=== PATIENT | male | born 1950 | race Caucasian/White ===

== ENCOUNTER → 2022-01-10 | Outpatient (CLI) | payer MEDICARE ==
[2022-01-10 14:14] LABS: Basophils # (A) 0.07 X 10*3/uL (0.00-0.10); Basophils % (A) 0.9 %; Eosinophils # (A) 0.23 X 10*3/uL (0.04-0.35); Eosinophils % (A) 3.1 %; HCT 39.8 % (39.6-50.0); HGB 13.3 g/dL (13.0-17.0); Immature Grans, Automated 0.3 %; Lymphocytes # (A) 2.32 X 10*3/uL (0.90-5.00); Lymphocytes % (A) 31.2 %; MCH 31.1 pg (27.0-32.0); MCHC 33.4 g/dL (32.0-37.0); MCV 93.2 fL (80.0-97.0); Mean Platelet Volume 9.4 fL (9.5-12.2); Monocytes # (A) 0.79 X 10*3/uL (0.20-1.00); Monocytes % (A) 10.6 %; NRBC Per 100 WBC 0 /100 WBCS (0.0-0.0); Neutrophils % (A) 53.9 %; Platelet Count 421 X 10*3/uL (140-440); RBC 4.27 X 10*6/uL (4.40-5.60); RDW 14.6 % (11.5-14.5); WBC 7.43 X 10*3/uL (4.50-10.00)
[2022-01-10 14:19] LABS: African American GFR (CKD) 87.4 (60.0-200.0); Anion Gap 9.2 mmol/L (10.00-18.00); BUN/Creat Ratio 14.3 Ratio (12.00-20.00); Blood Urea Nitrogen 14.3 mg/dL (9.0-27.0); Calcium 9.4 mg/dL (8.7-10.3); Carbon Dioxide 26.8 mmol/L (20.0-27.5); Non-African American GFR(CKD) 75.4 (60.0-200.0); Potassium 4.3 mmol/L (3.5-5.5)
== END | disposition home or self-care (01) ==
LOC: LABPAT 09:59
PROVIDERS: ATTEND Urology
DX: Z01.812 Encounter for preprocedural laboratory examination (principal); D49.4 Neoplasm of unspecified behavior of bladder
CPT/HCPCS: 80048; 85025

== ENCOUNTER 2022-01-18 10:00 | Day surgery (SDC) | payer MEDICARE ==
--- NOTE | 2022-01-17 22:16 | P.GSHP ---
History of Present Illness H&P Date: 01/17/22 Chief Complaint: Hematuria The patient is a 71-year-old white male with an unremarkable urologic history who had an episode of gross hematuria in early December. A CT scan showed a left lateral bladder wall diverticulum as well as a 2.5 cm bladder mass. Cystoscopy shows a 2-3 cm sessile tumor on the left lateral bladder wall. A small diverticulum is identified just distal to the tumor. - Constitutional Constitutional: Denies chills, Denies fever - Genitourinary (Female) Genitourinary: Reports hematuria, Denies flank pain Past Medical History Past Medical History: No Reported History Past Surgical History: Tonsillectomy Additional Past Surgical History / Comment(s): Left knee surgery Smoking Status: Current every day smoker Medications and Allergies Allergies Allergy/AdvReac Type Severity Reaction Status Date / Time Unable to Assess Allergy Verified 01/17/22 12:55 Surgical - Exam - General well developed, well nourished, no distress - Neck no masses, trachea midline - Respiratory normal respiratory effort - Abdomen Abdomen: soft, non tender, no guarding, no rigid, no rebound - Genitourinary normal penis with no external lesions, testicles non-tender left: scrotal mass/hydrocele (Left scrotal wall sebaceous cyst) - Rectum Rectum: normal sphincter tone, no masses, other (Prostate moderately enlarged and smooth) - Psychiatric oriented to time, oriented to person, oriented to place, speech is normal, memory intact Results - Imaging CT scan - abdomen: report reviewed, image reviewed Assessment and Plan (1) Neoplasm of unspecified behavior of bladder Status: Acute Code(s): D49.4 - NEOPLASM OF UNSPECIFIED BEHAVIOR OF BLADDER SNOMED Code(s): 183986253 Plan: Cystoscopy, transurethral resection of bladder tumor (TUR-BT). The procedures been reviewed in detail with the patient. He has been made aware of potential risks, which include anesthesia, bleeding, infection, postoperative urinary retention, and bladder perforation. The possible need for a Lira catheter postoperatively has been discussed.
[~2022-01-18 10:00] MED LIST: HYDROmorphone 0.5 MG/0.5 ML SYRINGE IVP PRN; LACTATED RINGERS 1,000 ML IV SCH; fentaNYL (PF) 50 MCG/ML 2 ML AMP IV PRN
[2022-01-18] MEDS ORDERED: ONDANSETRON 4 MG/2 ML VIAL ONE (10:34)
[2022-01-18] MEDS ORDERED: LIDOCAINE 1% (10MG/ML) FOR IV START INTRADERMA ONE (10:35)
[2022-01-18] MEDS ORDERED: DEXAMETHASONE SOD PHOSPHATE 4 MG/ML 1 ML VIAL IV ONE (10:40)
[2022-01-18] MEDS ORDERED: ONDANSETRON 4 MG/2 ML VIAL IVP ONE (10:40)
[2022-01-18] MEDS ORDERED: SUCCINYLCHOLINE CHLORIDE 200 MG/10 ML VIAL IV ONE (15:07)
[2022-01-18] MEDS ORDERED: NEOSTIGMINE 1 MG/ML 10 ML VIAL ONE (15:07)
[2022-01-18] MEDS ORDERED: fentaNYL (PF) 50 MCG/ML 2 ML AMP ONE ×2 (15:07)
[2022-01-18] MEDS ORDERED: ROCURONIUM 10 MG/ML (5 ML VIAL) IV ONE (15:07)
[2022-01-18] MEDS ORDERED: PROPOFOL 10 MG/ML 20 ML VIAL IV ONE (15:07)
[2022-01-18] MEDS ORDERED: GLYCOPYRROLATE 0.2 MG/ML 2 ML VIAL ONE (15:07)
[2022-01-18] MEDS ORDERED: PHENYLEPHRINE-0.9% NACL SYG 1,000 MCG/10 ML SYRINGE ONE (15:07)
[2022-01-18] MEDS ORDERED: LIDOCAINE 2% INJ 20 MG/ML (2 ML VIAL) ONE (15:07)
--- NOTE | 2022-01-18 16:43 | P.OP ---
Date of Procedure: 01/18/22 Preoperative Diagnosis: Bladder tumor Postoperative Diagnosis: Bladder tumors Procedure(s) Performed: Cystoscopy, transurethral resection of bladder tumor (TUR-BT; large) Anesthesia: CHREYLA Surgeon: Jhonny Maher Estimated Blood Loss (ml): 10 IV fluids (ml): 500 Pathology: other (Tumor fragments from bladder dome and left lateral bladder wall.) Condition: stable Disposition: PACU Indications for Procedure: The patient is a 71-year-old white male with an unremarkable urologic history who had an episode of gross hematuria in early December. A CT scan showed a left lateral bladder wall diverticulum as well as a 2.5 cm bladder mass. Cystoscopy shows a 2-3 cm sessile tumor on the left lateral bladder wall. A small diverticulum is identified just distal to the tumor. 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 2) Left lateral bladder wall sessile tumor, suspect muscle invasion. Description of Procedure: The patient was taken in the operating room and placed in the dorsal lithotomy position, with his legs supported in Tavo stirrups. The external genitalia was prepped and draped sterilely. The Rell urethrotome was used to incise the urethra to 25-Japanese. The 25-Japanese ACMI resectoscope sheath was introduced into the bladder under direct vision. The prostatic urethra showed evidence of bilobar enlargement. No urothelial changes were seen within the prostatic urethra.. The bladder was inspected. Both ureteral orifices were of normal anatomic location and configuration, and clear urine effluxed from both. The entire bladder was examined, revealing flat tumor involving the bladder dome. A sessile tumor was seen on the left lateral bladder wall, measuring 2-3 cm in size. Just distal to this was a moderate-sized diverticulum.. Using the bipolar cutting loop, the involved mucosa at the bladder dome was resected down to the superficial muscle. This resected tissue was sent as a surgical specimen. Next, the left lateral bladder wall tumor was resected down to the deep muscle muscle. The tumor appeared to be muscle invasive. There was no evidence of bladder perforation. The resection bed was fulgurated, though it was not possible to completely eliminate oozing from the base of the left lateral bladder wall tumor. Nonetheless, adequate hemostasis was attained. The resected tissue was saved and sent for pathologic examination. A 20-Japanese Lira catheter was inserted. The return was essentially clear. Lasix 10 mg was given intravenously. The patient tolerated the procedure well and was taken to the recovery room in stable condition.
[2022-01-18] MEDS ORDERED: LACTATED RINGERS 1,000 ML IV ONE ×2 (16:45)
[2022-01-18 16:50] VITALS: TEMP 96.8
[2022-01-18] MEDS ORDERED: TAMSULOSIN 0.4 MG CAP.ER.24H PO ONE (17:54)
[2022-01-18] MEDS ORDERED: BELLADONNA-OPIUM 16.2-60 MG 1 EACH SUPP RECTAL ONE (18:00)
[2022-01-18 18:46] VITALS: BP 133/78; PULSE 56; RESP 20
== END 2022-01-18 18:47 | disposition home or self-care (01) ==
LOC: OR 10:00
PROVIDERS: ATTEND Urology
DX: C67.9 Malignant neoplasm of bladder, unspecified (principal); R31.0 Gross hematuria; N32.3 Diverticulum of bladder; F17.210 Nicotine dependence, cigarettes, uncomplicated; Z90.89 Acquired absence of other organs; Z98.890 Other specified postprocedural states
CPT/HCPCS: 52240; J0330; J1100; J2710; J0690; J2405; J3010; J2370; J2704; J2001; 88307

== ENCOUNTER → 2022-03-15 | Outpatient (CLI) | payer MEDICARE ==
[2022-03-15 08:29] LABS: ALT 14 U/L (4-49); AST 18 U/L (17-59); African American GFR (CKD) >90 (>60 ml/min/1.73 sqM); Albumin 4.2 g/dL (3.5-5.0); Albumin/Globulin Ratio 1.7; Alkaline Phosphatase 81 U/L (38-126); Anion Gap 5 mmol/L; Blood Urea Nitrogen 18 mg/dL (9-20); Calcium 9.2 mg/dL (8.4-10.2); Carbon Dioxide 27 mmol/L (22-30); Chloride 106 mmol/L (98-107); Globulin 2.5 g/dL; Glucose 105 mg/dL (74-99); Non-African American GFR(CKD) 88 (>60 ml/min/1.73 sqM); Potassium 4.3 mmol/L (3.5-5.1); Sodium 138 mmol/L (137-145); Total Bilirubin 0.5 mg/dL (0.2-1.3); Total Protein 6.7 g/dL (6.3-8.2)
--- NOTE | 2022-03-15 10:32 | CT ---
EXAMINATION TYPE: CT chest wo con DATE OF EXAM: 03/15/2022 COMPARISON: None HISTORY: r/o mets, bladder ca CT DLP: 236.7 mGycm. Automated Exposure Control for Dose Reduction was Utilized. TECHNIQUE: CT scan of the thorax is performed without IV contrast. FINDINGS: LUNGS: The lungs are grossly clear, there is no concerning parenchymal mass or nodule identified. T here is no pleural effusion or pneumothorax seen. The tracheobronchial tree is patent. Biapical pleu ral thickening. Findings suggest mild underlying emphysematous change. MEDIASTINUM: Lack of IV contrast is noted to limit evaluation for mediastinal and especially hilar ad enopathy. There are no definitive greater than 1 cm hilar or mediastinal lymph nodes. No cardiomega ly or pericardial effusion is seen. Aorta measures a maximal dimension of 3.8 cm there is coronary ar jimy calcification. Heart size normal OTHER: Hypertrophic degenerative changes spine. Indeterminate hypodensity within the left renal anter ior cortex correlated with ultrasound if clinically. IMPRESSION: 1. No diagnostic evidence of pulmonary nodule or pathologic adenopathy. 2. Coronary artery calcification. 3. Correlate for COPD.
[2022-03-15 11:02] LABS: Basophils # (A) 0.07 X 10*3/uL (0.00-0.10); Basophils % (A) 0.9 %; Eosinophils # (A) 0.23 X 10*3/uL (0.04-0.35); HCT 39.8 % (39.6-50.0); Immature Grans, Automated 0.3 %; Lymphocytes # (A) 2.35 X 10*3/uL (0.90-5.00); Lymphocytes % (A) 30.4 %; MCH 30.7 pg (27.0-32.0); MCHC 32.7 g/dL (32.0-37.0); MCV 94.1 fL (80.0-97.0); Mean Platelet Volume 9.3 fL (9.5-12.2); Monocytes # (A) 0.76 X 10*3/uL (0.20-1.00); Monocytes % (A) 9.8 %; NRBC Per 100 WBC 0 /100 WBCS (0.0-0.0); Neutrophils % (A) 55.6 %; Platelet Count 466 X 10*3/uL (140-440); RBC 4.23 X 10*6/uL (4.40-5.60); RDW 14.5 % (11.5-14.5); WBC 7.73 X 10*3/uL (4.50-10.00)
--- NOTE | 2022-03-16 16:03 | CT ---
EXAMINATION TYPE: CT urogram wo/w con DATE OF EXAM: 03/15/2022 COMPARISON: 12/28/2021 INDICATION: bladder ca DLP: 1064.9 mGycm, Automated exposure control for dose reduction was used. CONTRAST: 100 mL of Isovue 370. Study performed without Oral Contrast TECHNIQUE: Axial images were obtained from above the diaphragm to the pubic rami in the axial plane a t 5 mm thick sections. Reconstructed images are reviewed on the computer in the coronal plane. FINDINGS: Limited CT sections are obtained the lung bases. The lung bases are clear. CT ABDOMEN: Liver: Normal Spleen: Normal Pancreas: Normal Adrenal glands: The adrenal glands are normal. Gallbladder: Normal Kidneys: No masses are evident. No hydronephrosis is present. There is a 1.2 cm cyst on the anterio r mid left kidney. Delayed images were obtained through the kidney. This was performed at 6 minutes due to urgency for u rination. Renal collecting system renal pelves and ureters as visualized appear normal. There is part ial nonvisualization of ureters during portions of the examination. Urinary bladder: There is diffuse wall thickening through the left lateral aspect extending posterior and to lesser degree anterior. There is inferior impression from the enlarged prostate. These findin gs were present previously. There is a new 2.0 cm filling defect. This is not identified on the comparison study. Recurrent urina ry bladder neoplasm should be considered. Aorta: Vascular calcification is within the aorta. Inferior vena cava: Normal. CT PELVIS: Loops of bowel within the abdomen and pelvis are normal. This study is limited without oral contr ast, limiting bowel evaluation. Appendix: Normal as visualized. Genitourinary structures: Osseous structures: No suspicious lytic or sclerotic lesions. IMPRESSIONS: 1. Filling defect within the urinary bladder measuring 2 cm suspicious for urinary bladder recurrent neoplasm. 2. Diffuse wall thickening through the left lateral portion of the urinary bladder appears stable fro m comparison.
== END | disposition home or self-care (01) ==
LOC: RADCTMAIN 07:43
PROVIDERS: ATTEND Urology
DX: C67.0 Malignant neoplasm of trigone of bladder (principal); I25.10 Atherosclerotic heart disease of native coronary artery without angina pectoris
CPT/HCPCS: 80053; 85025; 71250; 74178; 36415; 74400; Q9967

== ENCOUNTER → 2022-07-19 | Outpatient (CLI) | payer MEDICARE ==
--- NOTE | 2022-07-19 12:10 | CT ---
EXAMINATION TYPE: CT ChestAbdPelvis w con DATE OF EXAM: 07/19/2022 COMPARISON: Prior CT March 15, 2022 HISTORY: bladder cancer CT DLP: 592.1 mGycm. Automated Exposure Control for Dose Reduction was Utilized. CONTRAST: CT scan of the thorax, abdomen and pelvis is performed with IV Contrast, patient injected with 100 mL of Isovue 300. FINDINGS: LUNGS: Mild biapical pleural/parenchymal scarring is redemonstrated. No suspicious new greater than 5 mm pulmonary nodules or masses. There is no pleural effusion or pneumothorax seen. The tracheobron chial tree is patent. MEDIASTINUM: There are no greater than 1 cm hilar or mediastinal lymph nodes. No cardiomegaly or pe ricardial effusion is seen. Coronary artery calcification is redemonstrated. LIVER/GB: No significant abnormality is appreciated. PANCREAS: No significant abnormality is seen. SPLEEN: No significant abnormality is seen. ADRENALS: No significant abnormality is seen. KIDNEYS: Symmetric corticomedullary uptake and excretion without hydronephrosis seen bilaterally. The re is 1.4 cm simple appearing thin-walled cyst anteriorly in the left kidney axial image 21 redemonst rated. Urinary bladder has persistent left lateral abnormal moderate wall thickening with new mild co ncentric wall thickening overall and suboptimal distention. No new intraluminal mass or calculus. Sca ttered left-sided pelvic phlebolith are redemonstrated. BOWEL: Oral contrast was not reached level of the terminal ileum making evaluation of distal bowel sl ightly suboptimal. No suspicious small or large bowel dilatation is seen. GENITAL ORGANS: Enlarged prostate consistent with BPH is redemonstrated. LYMPH NODES: No greater than 1cm abdominal or pelvic lymph nodes are appreciated. OSSEOUS STRUCTURES: Vacuum disc phenomenon with mild to moderate spurring and narrowing at the lumbos acral junction is redemonstrated. Multilevel facet arthropathy in the lumbar spine is again seen. OTHER: No significant additional abnormality is seen. IMPRESSION: Persistent abnormal appearing bladder could reflect product of prior treatment and/or act cecile neoplasm. There is no suspicious new mass or adenopathy to suggest metastatic disease or neoplast ic progression.
== END | disposition home or self-care (01) ==
LOC: RADCTMAIN 09:28
PROVIDERS: ATTEND Internal Medicine
DX: Z03.89 Encounter for observation for other suspected diseases and conditions ruled out (principal); C67.9 Malignant neoplasm of bladder, unspecified
CPT/HCPCS: 82565; 84520; 71260; 74177; 36415; Q9967

== ENCOUNTER 2022-12-24 09:28 | Emergency (ER) | payer MEDICARE ==
[2022-12-24 09:33] VITALS: TEMP 97.7
--- NOTE | 2022-12-24 11:11 | ED ---
Abdominal Pain HPI - General Chief Complaint: Abdominal Pain Stated Complaint: fluid build up Time Seen by Provider: 12/24/22 09:34 Source: patient, RN notes reviewed Mode of arrival: ambulatory Limitations: no limitations - History of Present Illness Initial Comments: This is a 72-year-old male who presents to the emergency department for constipation and abdominal pain. States that a couple of months ago he had resection of his bladder and prostate at [facility] due to bladder cancer. Since then he has been having intermittent problems with constipation. However, over the last month he has not had an adequate bowel movement. He states that he has only had small hard pieces of stool. He has generalized abdominal pain. He had a CT scan of his abdomen and pelvis done on 12/12, and states that his PCP told him that he may have a seroma. He has not been taking any medications for the constipation. Denies any associated nausea or vomiting. Currently follows with Dr. Salazar, hem/onc. He is not receiving any cancer treatment at this time. Denies any fevers, chills, sore throat, cough, dyspnea, chest pain, palpitations, nausea, vomiting, diarrhea, back pain, or headaches. MD Complaint: abdominal pain Location: diffuse - Related Data Previous Rx's Medication Instructions Recorded polyethylene glycoL 3350 [Miralax] 17 gm PO DAILY PRN #527 gm 12/24/22 Allergies Allergy/AdvReac Type Severity Reaction Status Date / Time No Known Allergies Allergy Verified 12/24/22 09:33 Review of Systems ROS Statement: Those systems with pertinent positive or pertinent negative responses have been documented in the HPI. ROS Other: All systems not noted in ROS Statement are negative. Past Medical History Past Medical History: Cancer Additional Past Medical History / Comment(s): BLADDER CANCER History of Any Multi-Drug Resistant Organisms: None Reported Past Surgical History: Tonsillectomy Additional Past Surgical History / Comment(s): Left knee surgery,MASS REMOVED FROM BLADDER 01/2022, 07/2022-bladder removed/ileostomy Past Anesthesia/Blood Transfusion Reactions: No Reported Reaction Past Psychological History: No Psychological Hx Reported Smoking Status: Current every day smoker Past Alcohol Use History: Occasional Past Drug Use History: None Reported General Exam Limitations: no limitations General appearance: alert, in no apparent distress Head exam: Present: atraumatic, normocephalic, normal inspection Respiratory exam: Present: normal lung sounds bilaterally. Absent: respiratory distress, wheezes, rales, rhonchi, stridor Cardiovascular Exam: Present: regular rate, normal rhythm, normal heart sounds. Absent: systolic murmur, diastolic murmur, rubs, gallop, clicks GI/Abdominal exam: Present: soft, normal bowel sounds. Absent: distended, tenderness, guarding, rebound, rigid Neurological exam: Present: alert, oriented X3, CN II-XII intact Psychiatric exam: Present: normal affect, normal mood Skin exam: Present: warm, dry, intact, normal color. Absent: rash Course Vital Signs 12/24/22 12/24/22 12/24/22 09:29 11:26 13:23 Temperature 97.7 F 97.7 F Pulse Rate 85 73 63 Respiratory 18 20 20 Rate Blood Pressure 126/80 113/83 125/81 O2 Sat by Pulse 97 99 98 Oximetry Medical Decision Making - Medical Decision Making This is a 72-year-old male who presents to the emergency department for abdominal pain and constipation. Was pt. sent in by a medical professional or institution? @ -No Did you speak to anyone other than the patient for history? @ -No Did you review nursing and triage notes? @ -Yes, and I agree, it is accurate with regards to the patient's symptoms. Were old charts reviewed? @ -No Differential Diagnosis? @ -Differential Abdominal Pain Men: Appendicitis, cholecystitis, diverticulosis, ischemic bowel, pancreatitis, hepatitis, UTI, gastroenteritis, AAA, incarcerated hernia, bowel obstruction, constipation, inflammatory bowel, hepatitis, peptic ulcer disease, splenic infarction, perforated viscus, testicular torsion, this is not meant to be an all-inclusive list EKG interpreted by me (3pts min.)? @ -Not obtained X-rays interpreted by me (1pt min.)? @ -Not obtained CT interpreted by me (1pt min.)? @ -Computed tomography scan of the abdomen and pelvis obtained. My interpretation identifies no evidence of free air. U/S interpreted by me (1pt. min.)? @ -Not obtained What testing was considered but not performed? (CT, X-rays, U/S, labs)? Why? @ -None What meds were considered but not given? Why? @ -None Did you discuss the management of the patient with other professionals? @ -No Did you reconcile home meds? @ -No Was smoking cessation discussed for >3mins.? @ -No Was critical care preformed (if so, how long)? @ -No Were there social determinants of health that impacted care today? How? (Homelessness, low income, unemployed, alcoholism, drug addiction, transportation, low edu. Level, literacy, decrease access to med. care, group home, rehab)? @ -No Was there de-escalation of care discussed even if they declined? (Discuss DNR or withdrawal of care, Hospice)? @ -No What co-morbidities impacted this encounter? (DM, HTN, Smoking, COPD, CAD, Cancer, CVA, Hep., AIDS, mental health diagnosis, sleep apnea, morbid obesity)? @ -Bladder cancer Was patient admitted / discharged? @ -Discharged. Lab work obtained and found to be nonactionable. Computed tomography scan of the abdomen and pelvis obtained revealing concern for neoplasm progression. There does appear to be some progression to the colon as well. Discussed with the patient that this may be contributing to his constipation. He is instructed to follow up with Dr. Salazar to review the imaging and discuss his treatment moving forward. He was given a prescription for MiraLAX to help with the constipation as well. Undiagnosed new problem with uncertain prognosis? @ -None Drug Therapy requiring intensive monitoring for toxicity (Heparin, Nitro, Insulin, Cardizem)? @ -None Were any procedures done? @ -None Diagnosis/symptom? @ -Constipation, metastatic cancer Acute, or Chronic, or Acute on Chronic? @ -Acute Uncomplicated (without systemic symptoms) or Complicated (systemic symptoms)? @ -Uncomplicated Side effects of treatment? @ -None Exacerbation, Progression, or Severe Exacerbation] @ -Not applicable Poses a threat to life or bodily function? @ -Yes Return precautions reviewed in depth, the patient is instructed to return to the emergency department with any new, worsening, or concerning symptoms. Patient verbalized understanding. This case was discussed in detail with the attending ED physician, Dr. Moy. Presentation, findings, and treatment plan discussed in detail as well. - Lab Data Result diagrams: 12/24/22 11:33 12/24/22 11:33 Lab Results 12/24/22 12/24/22 12/24/22 Range/Units 11:33 11:33 11:33 WBC 8.5 (3.8-10.6) k/uL RBC 3.90 L (4.30-5.90) m/uL Hgb 11.5 L (13.0-17.5) gm/dL Hct 35.4 L (39.0-53.0) % MCV 90.7 (80.0-100.0) fL MCH 29.6 (25.0-35.0) pg MCHC 32.6 (31.0-37.0) g/dL RDW 15.6 H (11.5-15.5) % Plt Count 492 H (150-450) k/uL MPV 6.9 Neutrophils % 67 % Lymphocytes % 20 % Monocytes % 7 % Eosinophils % 3 % Basophils % 0 % Neutrophils # 5.7 (1.3-7.7) k/uL Lymphocytes # 1.7 (1.0-4.8) k/uL Monocytes # 0.6 (0-1.0) k/uL Eosinophils # 0.2 (0-0.7) k/uL Basophils # 0.0 (0-0.2) k/uL Sodium 139 (137-145) mmol/L Potassium 4.6 (3.5-5.1) mmol/L Chloride 105 (98-107) mmol/L Carbon Dioxide 24 (22-30) mmol/L Anion Gap 10 mmol/L BUN 23 H (9-20) mg/dL Creatinine 0.94 (0.66-1.25) mg/dL Est GFR (CKD-EPI)AfAm >90 (>60 ml/min/1.73 sqM) Est GFR (CKD-EPI)NonAf 81 (>60 ml/min/1.73 sqM) Glucose 102 H (74-99) mg/dL Plasma Lactic Acid José 0.8 (0.7-2.0) mmol/L Calcium 9.6 (8.4-10.2) mg/dL Total Bilirubin 0.5 (0.2-1.3) mg/dL AST 20 (17-59) U/L ALT 17 (4-49) U/L Alkaline Phosphatase 132 H (38-126) U/L Total Protein 7.5 (6.3-8.2) g/dL Albumin 4.0 (3.5-5.0) g/dL Amylase 51 (30-110) U/L Lipase 29 (23-300) U/L - Radiology Data Radiology results: report reviewed, image reviewed Disposition Clinical Impression: Constipation, Metastatic cancer Disposition: HOME SELF-CARE Instructions (If sedation given, give patient instructions): Constipation (ED) Additional Instructions: Return to the emergency department with any new, worsening, or concerning symptoms. Start taking the MiraLAX once daily to help with the constipation. Increase your fluid intake. Follow up with Dr. Salazar. Follow up with your primary care provider in 1-2 days. Prescriptions: polyethylene glycoL 3350 [Miralax] 17 gm PO DAILY PRN #527 gm PRN Reason: Constipation Is patient prescribed a controlled substance at d/c from ED?: No Referrals: None,Stated [REFERRING] - 1-2 days Ru Salazar MD [STAFF PHYSICIAN] - 1-2 days
[2022-12-24 11:30] VITALS: RESP 20
[2022-12-24 11:50] LABS: Basophils % (A) 0 %; Eosinophils # (A) 0.2 k/uL (0-0.7); Eosinophils % (A) 3 %; HCT 35.4 % (39.0-53.0); HGB 11.5 gm/dL (13.0-17.5); Lymphocytes # (A) 1.7 k/uL (1.0-4.8); Lymphocytes % (A) 20 %; MCH 29.6 pg (25.0-35.0); MCHC 32.6 g/dL (31.0-37.0); MCV 90.7 fL (80.0-100.0); Mean Platelet Volume 6.9; Monocytes # (A) 0.6 k/uL (0-1.0); Monocytes % (A) 7 %; Neutrophils # (A) 5.7 k/uL (1.3-7.7); Neutrophils % (A) 67 %; Platelet Count 492 k/uL (150-450); RDW 15.6 % (11.5-15.5); WBC 8.5 k/uL (3.8-10.6)
[2022-12-24 12:00] LABS: ALT 17 U/L (4-49); AST 20 U/L (17-59); African American GFR (CKD) >90 (>60 ml/min/1.73 sqM); Alkaline Phosphatase 132 U/L (38-126); Amylase 51 U/L (30-110); Anion Gap 10 mmol/L; Blood Urea Nitrogen 23 mg/dL (9-20); Calcium 9.6 mg/dL (8.4-10.2); Carbon Dioxide 24 mmol/L (22-30); Chloride 105 mmol/L (98-107); Glucose 102 mg/dL (74-99); Lipase 29 U/L (23-300); Non-African American GFR(CKD) 81 (>60 ml/min/1.73 sqM); Potassium 4.6 mmol/L (3.5-5.1); Sodium 139 mmol/L (137-145); Total Bilirubin 0.5 mg/dL (0.2-1.3); Total Protein 7.5 g/dL (6.3-8.2)
--- NOTE | 2022-12-24 12:55 | CT ---
EXAMINATION TYPE: CT abdomen pelvis w con DATE OF EXAM: 12/24/2022 COMPARISON: 07/19/2022 HISTORY: 72-year-old male Abdominal pain, constipation. Hx bladder ca. TECHNIQUE: Contiguous axial scanning of the abdomen and pelvis following administration of 100 ml Iso nato 300 IV contrast. Delayed images through the kidneys and coronal/sagittal reconstructions perform ed. CT DLP: 643.3 mGycm Automated exposure control for dose reduction was used. FINDINGS: Heart normal size without pericardial effusion. Lung bases clear without pleural effusion. No focal liver lesion or biliary ductal dilatation. Portal venous system is patent. Gallbladder, adrenal glands, right kidney, spleen with a tiny inferior splenule, and pancreas within normal limits. There is a 1.3 cm cortical cyst anterior left kidney. The measured uptake and excretion of contrast f rom both kidneys. Moderate atherosclerotic calcifications throughout the abdominal aorta. There is a right lower quadrant diverting urostomy with ileal conduit. Normal appendix. Mild overall stool burden. There is abnormal contour to the lobulated contour to the bladder with abnormal soft tissue thickenin g up to 1.7 cm. The width of the abnormality measures up to 10.4 cm from side to side with soft tissu e density abutting the right obturator internus muscle and probably invading the left obturator inter nus. Abnormal anterior left and inferior peritoneal nodularity measuring 9 mm, axial image 63. Additional abnormal 1.5 cm intramuscular nodularity anterior aspect of the left obturator internus. Abnormal soft tissue thickening may be contiguous with colonic wall thickening near the rectosigmoid junction, axial image 57, and mid sigmoid colon on axial image 58. Presacral edema is new. Left upper pelvis and left lower quadrant peritoneal nodularity measuring 8 mm and 1.1 cm is new. Add itional 1.6 cm soft tissue deposit anterior to the left iliac musculature on axial image 44 is new Bones: Mild degenerative changes left SI joint. Advanced hypertrophic facet arthropathy throughout. D egenerative grade 1 anterolisthesis L3-L4. Moderate degenerative disc disease L5-S1. IMPRESSION: 1. INTERVAL DIVERTING UROSTOMY WITH A ILEAL CONDUIT RIGHT LOWER QUADRANT. 2. LOCAL NEOPLASTIC PROGRESSION. ABNORMAL MURAL BASED SOFT TISSUE THICKENS AND DEFORMS THE BLADDER GI VING IT A LOBULATED APPEARANCE. THERE IS DIRECT INVASION INTO THE LEFT OBTURATOR INTERNUS MUSCLE AND POSSIBLE EARLY INVASION ON THE RIGHT. SUSPECT A COUPLE AREAS OF INVASION INVOLVING THE ADJACENT BOWEL (RECTOSIGMOID JUNCTION AND MID SIGMOID COLON) WELL. NO SAM OBSTRUCTIVE CHANGES SEEN AT THIS [facility]. 3. A FEW METASTATIC PERITONEAL DEPOSITS ON THE LEFT MEASURING UP TO 1.6 CM. AN INTRAMUSCULAR DEPOSIT ANTERIORLY WITHIN THE LEFT OBTURATOR INTERNUS MEASURES 1.5 CM.
[2022-12-24 13:26] VITALS: BP 125/81; PULSE 63
== END 2022-12-24 13:29 | disposition home or self-care (01) ==
LOC: EC 09:28
DX: C79.11 Secondary malignant neoplasm of bladder (principal); K52.9 Noninfective gastroenteritis and colitis, unspecified; F17.200 Nicotine dependence, unspecified, uncomplicated
CPT/HCPCS: 36415; 80053; 82150; 83605; 83690; 85025; 74177; 99284; Q9967

== ENCOUNTER → 2023-01-09 | Outpatient (CLI) | payer MEDICARE ==
[2023-01-09 16:22] LABS: African American GFR (CKD) 86 (>60 ml/min/1.73 sqM); Blood Urea Nitrogen 24 mg/dL (9-20); Non-African American GFR(CKD) 74 (>60 ml/min/1.73 sqM)
--- NOTE | 2023-01-09 20:22 | CT ---
EXAMINATION TYPE: CT chest w con CT DLP: 377 mGycm, Automated exposure control for dose reduction was used. DATE OF EXAM: 01/09/2023 7:44 PM COMPARISON: 12/24/2022. CLINICAL INDICATION:Male, 72 years old with history of C67.9 MALIGNANT NEOPLASM OF BLADDER; PHH, Hx o f bladder CA. R/O Mets. TECHNIQUE: Multiple axial images were obtained through the chest. Sagittal and coronal reformats were created for review. Contrast used:100cc mL of Isovue 300 with IV Contrast (None if empty) Oral contrast used: (None if empty) FINDINGS: LUNGS/ PLEURA: No evidence of focal consolidation, pneumothorax or pleural effusion. Mild emphysema c hanges. No new or enlarging pulmonary nodules are identified. AIRWAY: Patent and unremarkable. HEART: Size within normal limits. MEDIASTINUM: No gross evidence of adenopathy. VASCULATURE: No aortic aneurysm. MUSCULOSKELETAL: Moderate disc degeneration changes are present throughout the thoracolumbar spine. SOFT TISSUES/LYMPH NODES: Unremarkable. LOWER NECK: No significant findings. UPPER ABDOMEN: No significant findings. IMPRESSION: 1. No evidence for metastatic disease at this time. 2. Mild emphysema
== END | disposition home or self-care (01) ==
LOC: RADCTMAIN 15:22
PROVIDERS: ATTEND Internal Medicine
DX: C67.9 Malignant neoplasm of bladder, unspecified (principal); J43.9 Emphysema, unspecified; D50.9 Iron deficiency anemia, unspecified
CPT/HCPCS: 82565; 84520; 71260; Q9967

== ENCOUNTER → 2023-02-14 | Outpatient (CLI) | payer MEDICARE ==
[2023-02-14 16:10] LABS: African American GFR (CKD) >90 (>60 ml/min/1.73 sqM); Blood Urea Nitrogen 21 mg/dL (9-20); Non-African American GFR(CKD) >90 (>60 ml/min/1.73 sqM)
--- NOTE | 2023-02-15 08:24 | CT ---
EXAMINATION TYPE: CT abdomen pelvis w con CT DLP: 370.3 mGycm, Automated exposure control for dose reduction was used. DATE OF EXAM: 02/14/2023 5:07 PM COMPARISON: CT abdomen pelvis most recent from 01/21/2023. CLINICAL INDICATION:Male, 72 years old with history of C67.9 BLADDER CANCER; Bladder Ca. R/O metastas is TECHNIQUE: Standard CT of the abdomen and pelvis following the administration of 100 cc of Isovue 3 00 IV contrast material and oral contrast. Coronal and sagittal reformats were performed. FINDINGS: LOWER CHEST: Unremarkable ABDOMEN LIVER: Unremarkable GALLBLADDER AND BILE DUCTS: Unremarkable. PANCREAS: Unremarkable. SPLEEN: Unremarkable. ADRENAL GLANDS: Unremarkable. KIDNEYS AND URETERS: No evidence of hydronephrosis or renal calculus. The kidneys enhance symmetrical ly. Stable left renal 1.4 cm cyst. Contrast is demonstrated within both collecting systems. PELVIS BLADDER: Redemonstration of abnormal appearance of the urinary bladder with diffuse wall thickening a nd debris again demonstrated. The debris is consistent with stool due to invasion into the sigmoid co justyn (series 4, image 62) and series 8, image 47. REPRODUCTIVE: Unremarkable. ABDOMEN & PELVIS STOMACH AND BOWEL: Stomach and duodenum are unremarkable. Enteric contrast reaches the mid small jess l. Moderate amount of stool is present throughout the colon. Normal appendix. 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 No evidence of bowel obstruction. PERITONEUM: No evidence of pneumoperitoneum or free fluid. VASCULATURE: Mild atherosclerotic calcifications are present throughout the abdominal aorta and its b ranches. No evidence of aortic aneurysm. MUSCULOSKELETAL: No acute osseous abnormalities. Mild disc degeneration changes are present throughou t the thoracolumbar spine. This is most pronounced at L5-S1. No aggressive osseous lesion. LYMPH NODES: Few nonenlarged bilateral inguinal lymph nodes identified. Redemonstration of metastatic lymph nodes within the left iliac chain measuring 1.5 cm (series 4, image 54), and 1.3 cm (series 4, image 50). Metastatic lymph node along the left obturator measuring 1.0 cm (series 4, 65). There is invasion to the left obturator sales and merchandising associate muscle with a 2.1 cm enhancing deposit. Overall similar in s ize to prior exam. SOFT TISSUE/ABDOMINAL WALL: Redemonstration of a diverting urostomy with a ileal conduit in the right lower quadrant. IMPRESSION: 1. Overall stable examination with abnormal appearance of the urinary bladder related to known malig dinora with metastatic lymphadenopathy/deposits within the pelvis/left obturator region. 2. 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 Sto ol is present within the urinary bladder again. 3. Postsurgical changes from diverging urostomy with a ileal conduit in the right lower quadrant.
== END | disposition home or self-care (01) ==
LOC: RADCTMAIN 15:10
PROVIDERS: ATTEND Urology
DX: C67.9 Malignant neoplasm of bladder, unspecified (principal); C18.7 Malignant neoplasm of sigmoid colon; R59.0 Localized enlarged lymph nodes; Z98.890 Other specified postprocedural states
CPT/HCPCS: 82565; 84520; 74177; 36415; Q9967

== ENCOUNTER → 2023-02-28 | Outpatient (CLI) | payer MEDICARE ==
[2023-02-28 16:43] LABS: Anion Gap 12.3 mmol/L (4.00-12.00); Carbon Dioxide 22.7 mmol/L (21.6-31.8)
[2023-02-28 16:58] LABS: Basophils # (A) 0.05 X 10*3/uL (0.00-0.10); Basophils % (A) 0.5 %; Eosinophils # (A) 0.12 X 10*3/uL (0.04-0.35); Eosinophils % (A) 1.3 %; HCT 25.4 % (39.6-50.0); HGB 8.2 d/dL (13.0-17.0); Lymphocytes # (A) 1.47 X 10*3/uL (0.90-5.00); Lymphocytes % (A) 15.9 %; MCH 30.3 pg (27.0-32.0); MCHC 32.3 d/dL (32.0-37.0); MCV 93.7 FL (80.0-97.0); Mean Platelet Volume 8.7 FL (9.5-12.2); Monocytes # (A) 1.24 X 10*3/uL (0.20-1.00); Monocytes % (A) 13.4 %; NRBC Per 100 WBC 0 X 10*3/uL (0.00-0.01); Neutrophils # (A) 6.33 X 10*3/uL (1.80-7.70); Neutrophils % (A) 68.3 %; Platelet Count 679 X 10*3/uL (140-440); RBC 2.71 X 10*6/uL (4.40-5.60); RDW 18.9 % (11.5-14.5); WBC 9.27 X 10*3/uL (4.50-10.00)
== END | disposition home or self-care (01) ==
LOC: LABWHC1 09:33
PROVIDERS: ATTEND Surgery
DX: Z01.818 Encounter for other preprocedural examination (principal); I49.1 Atrial premature depolarization; N32.1 Vesicointestinal fistula; R94.31 Abnormal electrocardiogram [ECG] [EKG]
CPT/HCPCS: 36415; 80051; 85025; 93005

== ENCOUNTER 2023-03-11 09:45 | Inpatient (IN) | payer MEDICARE ==
[2023-03-18] MEDS ORDERED: HEPARIN SODIUM,PORCINE/PF 5,000 UNIT/0.5 ML SYRINGE SQ PRN (05:00)
[2023-03-18] MEDS ORDERED: metroNIDAZOLE-NS PMX 500 MG in SALINE 1 100ML.BAG IVPB PRN (05:00)
[2023-03-18] MEDS ORDERED: ACETAMINOPHEN TAB 500 MG TAB PO PRN (05:00)
[2023-03-18] MEDS ORDERED: HYDROmorphone 0.5 MG/0.5 ML SYRINGE IVP PRN (07:38)
[2023-03-18] MEDS ORDERED: ONDANSETRON 4 MG/2 ML VIAL IVP ONE (07:38)
[2023-03-18] MEDS ORDERED: droPERidol 5 MG/2 ML VIAL IVP ONE (07:38)
[2023-03-18] MEDS ORDERED: LIDOCAINE 1% (10MG/ML) FOR IV START INTRADERMA PRN (07:38)
[2023-03-18] MEDS ORDERED: DEXAMETHASONE SOD PHOSPHATE 4 MG/ML 1 ML VIAL IV ONE (07:38)
[2023-03-18 12:03] LABS: Anisocytosis Slight; Basophils % (A) 0 %; Eosinophils # (A) 0.2 k/uL (0-0.7); Eosinophils % (A) 2 %; HCT 27.5 % (39.0-53.0); Hypochromasia Slight; Lymphocytes # (A) 1.8 k/uL (1.0-4.8); Lymphocytes % (A) 18 %; MCH 30.7 pg (25.0-35.0); MCHC 32.4 g/dL (31.0-37.0); MCV 94.7 fL (80.0-100.0); Macrocytosis Slight; Mean Platelet Volume 6.8; Monocytes # (A) 0.9 k/uL (0-1.0); Monocytes % (A) 9 %; Neutrophils % (A) 70 %; Platelet Count 758 k/uL (150-450); RDW 18.4 % (11.5-15.5)
[2023-03-18] MEDS: LACTATED RINGERS 1,000 ML IV SCH (12:07)
[2023-03-18 12:18] LABS: African American GFR (CKD) >90 (>60 ml/min/1.73 sqM); Anion Gap 13 mmol/L; Blood Urea Nitrogen 21 mg/dL (9-20); Calcium 9.6 mg/dL (8.4-10.2); Carbon Dioxide 23 mmol/L (22-30); Chloride 101 mmol/L (98-107); Glucose 123 mg/dL (74-99); Non-African American GFR(CKD) 87 (>60 ml/min/1.73 sqM); Potassium 3.6 mmol/L (3.5-5.1); Sodium 137 mmol/L (137-145)
[2023-03-18 12:45] LABS: HGB 8.9 gm/dL (13.0-17.5)
[2023-03-18 13:01] LABS: Partial Thromboplastin Time 27.7 sec (22.0-30.0); Prothrombin Time 11.2 sec (10.0-12.5)
[2023-03-18] MEDS ORDERED: ONDANSETRON 4 MG/2 ML VIAL IVP PRN (13:24)
[2023-03-18] MEDS ORDERED: NALOXONE 0.4 MG/ML 1 ML VIAL IV PRN (13:24)
--- NOTE | 2023-03-18 13:24 | P.ANPRN ---
Procedure Note - Anesthesia - Epidural/Spinal Epidural Continuous Time Out Performed: Yes Date of Procedure: 03/18/23 Procedure Start Time: 13:05 Procedure Stop Time: 13:10 Location of Patient: PreOp Indication: Acute Post-Operative Pain, Requested by Surgeon Sedation Type: Awake Preparation: Sterile Prep Number of Attempts: 1 Position: Sitting Catheter Depth at Skin (cm): 9 Catheter: Indwelling Needle Guage: 18, Other (see comment) (9.5) Blood Aspirated: No Pain Paresthesia on Injection Noted: No Events: Uneventful and Well Tolerated
[2023-03-18] MEDS ORDERED: NEOSTIGMINE 1 MG/ML 10 ML VIAL ONE (13:45)
[2023-03-18] MEDS ORDERED: SUCCINYLCHOLINE CHLORIDE 200 MG/10 ML VIAL IV ONE (13:45)
[2023-03-18] MEDS ORDERED: PHENYLEPHRINE 10 MG/ML 5 ML VIAL ONE (13:45)
[2023-03-18] MEDS ORDERED: fentaNYL (PF) 50 MCG/ML 2 ML AMP ONE (13:45)
[2023-03-18] MEDS ORDERED: PROPOFOL 10 MG/ML 20 ML VIAL IV ONE (13:45)
[2023-03-18] MEDS ORDERED: ALBUMIN HUMAN 5% (12.5gm) 250 ML BOTTLE IVPB ONE (13:45)
[2023-03-18] MEDS ORDERED: MIDAZOLAM 2 MG/2 ML VIAL ONE (13:45)
[2023-03-18] MEDS ORDERED: LIDOCAINE 1% INJ 10MG/ML (20 ML MDV) ONE (13:45)
[2023-03-18] MEDS ORDERED: GLYCOPYRROLATE 0.2 MG/ML 2 ML VIAL ONE (13:45)
[2023-03-18] MEDS ORDERED: ROCURONIUM 10 MG/ML (5 ML VIAL) IV ONE (13:45)
[2023-03-18] MEDS: ROPIVACAINE 250 MG, HYDROMORPHONE (PF) 5 MG in SODIUM CHLORIDE 0.9% 200 ML EPIDURAL PRN (14:59)
--- NOTE | 2023-03-18 15:02 | P.OP ---
Date of Procedure: 03/18/23 Preoperative Diagnosis: Colovesical fistula Postoperative Diagnosis: Same Procedure(s) Performed: Diverting colostomy Anesthesia: RAIMUNDO Surgeon: Jordan Penny Estimated Blood Loss (ml): 50 Pathology: none sent Condition: stable Disposition: PACU Description of Procedure: Patient's placed on the operating table in the supine position. He received general endotracheal this. His abdomen was prepped and draped usual sterile fashion. Patient had a urostomy in the right lower quadrant. The skin was incised in midline. Using left cautery and sharp dissection and the abdominal wall was dissected. Several adhesions to the abdominal wall were lysed with sharp dissection. The pelvic cavity was entered. And then the abdominal wall retractors placed a wound. Patient had significant scarring in the pelvis. At this point decided to bring out a diverting colostomy. The visualized descending colon was transected with a GI stapler. And then the white line of [place] was divided. A suitable length of colon was found. The colostomy then brought up in the left upper quadrant. The fascia was then closed with looped #1 PDS suture. Skin was closed kalyan. Colostomy was matured with 3-0 Vicryl suture. Patient tolerated procedure well. He was sent to recovery room stable condition.
[2023-03-18] MEDS ORDERED: ESMOLOL 100 MG/10 ML VIAL IVPB ONE ×2 (15:59→16:23)
[2023-03-18] MEDS ORDERED: IV FLUID CONTINUATION 1,000 ML IV ONE (16:32)
[2023-03-18] MEDS ORDERED: METOPROLOL TARTRATE 5 MG/5 ML VIAL IVP ONE (17:05)
[2023-03-18] MEDS ORDERED: SODIUM CHLORIDE 0.9% 1,000 ML IV ONE (19:24)
[2023-03-18] MEDS ORDERED: SODIUM CHLORIDE 0.9% 500 ML 500 ML IV ONE (19:32)
[2023-03-18 20:40] LABS: Anisocytosis Slight; Basophils % (A) 0 %; Eosinophils % (A) 0 %; Hypochromasia Moderate; Lymphocytes # (A) 0.9 k/uL (1.0-4.8); Lymphocytes % (A) 8 %; MCH 30.5 pg (25.0-35.0); MCHC 31.2 g/dL (31.0-37.0); Macrocytosis Slight; Mean Platelet Volume 7.1; Monocytes # (A) 0.3 k/uL (0-1.0); Monocytes % (A) 3 %; Neutrophils # (A) 10.1 k/uL (1.3-7.7); Neutrophils % (A) 89 %; Platelet Count 588 k/uL (150-450); RBC 1.87 m/uL (4.30-5.90); RDW 18.4 % (11.5-15.5); WBC 11.3 k/uL (3.8-10.6)
[2023-03-18 21:02] LABS: HCT 18.3 % (39.0-53.0); HGB 5.7 gm/dL (13.0-17.5)
--- NOTE | 2023-03-19 07:34 | P.PN ---
Progress Note - Text Progress Note Date: 03/19/23 (054) Anesthesia Postop day 1 Status post diverting colostomy with epidural Day 2 Patient seen and examined. Doing well pain well controlled overnight. VAS 0 out of 10. 8 out of 10 with cough. No nausea or vomiting. Mild pruritus. Ropivacaine 0.1% with Dilaudid 20 mcg/mL at 5 mL an hour. Blood pressure improved last evening heart rate continued to increase. Contacted by nurse. At that time blood pressure remained good and patient was again further tachycardic. Ordered CBC. Hemoglobin came back a little less than 6 and was transfused 2 units. Heart rate is much better this morning. Objective: Vital signs reviewed Lungs: Good chest excursion Abdomen: Appears nondistended Neuro: Slight weakness of the left thigh.. Sensory within normal limits. Assessment: Status post diverting colostomy postop day 1 Plan: Continue current care with your medical management. Anticipate reevaluation tomorrow. Spoke with nurse will decrease rate to 3 mL per hour in hopes of improving weakness in the left thigh. Counseled nurse and patient on n eed to make anesthesia aware quickly if it's a growing weakness covering more area of the leg. If weakness does not improve to contact the anesthesia department for potential further changes.
[2023-03-19 07:51] LABS: Anisocytosis Slight; Basophils % (A) 0 %; Eosinophils % (A) 0 %; HCT 25.7 % (39.0-53.0); Hypochromasia Slight; Lymphocytes # (A) 2.5 k/uL (1.0-4.8); Lymphocytes % (A) 21 %; MCH 30.4 pg (25.0-35.0); MCHC 31.7 g/dL (31.0-37.0); Macrocytosis Slight; Mean Platelet Volume 6.8; Monocytes # (A) 0.9 k/uL (0-1.0); Monocytes % (A) 8 %; Neutrophils # (A) 8.5 k/uL (1.3-7.7); Neutrophils % (A) 70 %; Platelet Count 516 k/uL (150-450); Poikilocytosis Slight; RBC 2.68 m/uL (4.30-5.90); RDW 17.3 % (11.5-15.5); WBC 12.2 k/uL (3.8-10.6)
[2023-03-19 07:53] LABS: HGB 8.2 gm/dL (13.0-17.5)
[2023-03-19] MEDS: LACTATED RINGERS 1,000 ML IV SCH ×3 (08:55→17:56)
[2023-03-19 11:28] VITALS: BMI 17.6
[2023-03-19] MEDS: diphenhydrAMINE 50 MG/ML 1 ML VIAL IVP PRN ×2 (13:14→19:53)
[2023-03-19] MEDS: NICOTINE 14MG/24HR PATCH TRANSDERM SCH (13:41)
--- NOTE | 2023-03-19 14:14 | P.PN ---
Subjective Progress Note Date: 03/19/23 CHIEF COMPLAINT: Colovesical fistula HISTORY OF PRESENT ILLNESS: Patient is postop day #1 status post diverting colostomy. Patient has epidural for pain control. Patient lying in bed comfortably. Reports his pain is controlled. Denies any nausea or vomiting. He does have some soreness at the incision site. Afebrile. Patient has been hypotensive has received fluid boluses. Patient's hemoglobin 5.7 after surgery. He did receive 2 units of blood hemoglobin at 8.2. plt 516 PHYSICAL EXAM: VITAL SIGNS: Reviewed. GENERAL: Well-developed in no acute distress. HEENT: No sclera icterus. Extraocular movements grossly intact. Moist buccal mucosa. Head is atraumatic, normocephalic. ABDOMEN: Soft. Nondistended. tender at incision site. Syncopal back incision site clean dry and intact. Ostomy on the left with beefy red stoma. No stool output. Sanguinous drainage noted. Patient has a urostomy on the right. NEUROLOGIC: Alert and oriented. Cranial nerves II through XII grossly intact. ASSESSMENT: 1. Colovesical fistula Status post diverting colostomy 2. Dilutional anemia status post blood transfusion 3. History of bladder cancer PLAN: -Advance diet to clear liquids -Continue IV fluids. Medicine service has decreased fluids to 75 mL per hour -Repeat labs in a.m. -Encouraged patient to increase activity level -Encouraged patient to use incentive spirometer -Continue epidural for pain control -DVT prophylaxis SCDs Physician Lab Asst note has been reviewed by physician. Signing provider agrees with the documented findings, assessment, and plan of care. Objective - Vital Signs Vital signs: Vital Signs Temp 98.0 F 03/19/23 06:56 Pulse 88 03/19/23 06:56 Resp 14 03/19/23 06:56 BP 87/60 03/19/23 06:56 Pulse Ox 95 03/19/23 08:39 FiO2 Intake & Output 03/18/23 03/19/23 03/19/23 18:59 06:59 18:59 Intake Total 1850 620 Output Total 210 400 Balance 1640 220 Weight 56 kg 56 kg Intake: IV 1850 Blood Product 620 Rc As-1 Unit 310 [id number] Rc As-1 Unit 310 [id number] Output: Urine 190 300 Stool 100 Estimated Blood Loss 20 - Labs CBC & Chem 7: 11/14/23 07:15 03/18/23 11:50 Labs: Abnormal Lab Results - Last 24 Hours (Table) 03/18/23 03/18/23 03/18/23 Range/Units 11:50 11:50 11:50 WBC (3.8-10.6) k/uL RBC 2.90 L (4.30-5.90) m/uL Hgb 8.9 L D (13.0-17.5) gm/dL Hct 27.5 L (39.0-53.0) % RDW 18.4 H (11.5-15.5) % Plt Count 758 H (150-450) k/uL Neutrophils # (1.3-7.7) k/uL Lymphocytes # (1.0-4.8) k/uL BUN 21 H (9-20) mg/dL Glucose 123 H (74-99) mg/dL Crossmatch See Detail 03/18/23 03/19/23 Range/Units 20:20 07:15 WBC 11.3 H 12.2 H (3.8-10.6) k/uL RBC 1.87 L 2.68 L (4.30-5.90) m/uL Hgb 5.7 L* D 8.2 L D (13.0-17.5) gm/dL Hct 18.3 L* 25.7 L (39.0-53.0) % RDW 18.4 H 17.3 H (11.5-15.5) % Plt Count 588 H 516 H (150-450) k/uL Neutrophils # 10.1 H 8.5 H (1.3-7.7) k/uL Lymphocytes # 0.9 L (1.0-4.8) k/uL BUN (9-20) mg/dL Glucose (74-99) mg/dL Crossmatch
--- NOTE | 2023-03-20 01:13 | CONS ---
CONSULTATION REASON FOR CONSULTATION: Advice regarding PE and other medical issues requested by surgery. HISTORY OF PRESENT ILLNESS: This 73-year-old gentleman with a past history of bladder cancer, underwent diverting colostomy for colovesical fistula. There is no history of any fever, rigors, or chills. The patient apparently had postoperative PE before. PAST MEDICAL HISTORY: Reviewed include history of PE, bladder cancer. The rest of the history and rest of the chart is also reviewed. HOME MEDICATIONS: Reviewed include [place]. ALLERGIES: None. FAMILY HISTORY: Liver cancer. SOCIAL HISTORY: Occasional alcohol, smoking. REVIEW OF SYSTEMS: Fourteen-point review is negative as mentioned earlier. PHYSICAL EXAMINATION: VITAL SIGNS: Pulse is 88, blood pressure 87/60, respirations 14. HEENT: Conjunctivae normal. NECK: No jugular venous distention. CARDIOVASCULAR: S1, S2. No murmur. RESPIRATIONS: Diminished ABDOMEN: Soft, status post surgery. LABORATORY DATA: Reviewed. ASSESSMENT: 1. Status post diverting colostomy for colovesical fistula. 2. Relative hypotension. 3. History of pulmonary embolism. 4. History of iron deficiency anemia. 5. History of nicotine dependence. 6. Mild protein-calorie malnutrition. RECOMMENDATION: This is a 73-year-old gentleman presented with multiple complex medical issues, we will monitor the patient closely. Recommend to continue current medications, symptomatic treatment. DVT prophylaxis. I would recommend Lovenox. Otherwise, I would also recommend 8 a.m. cortisol. Also recommend smoking cessation. Advised proton pump inhibitors. We will follow the patient closely with you. Thank you for letting us to participate in the care. PRESTONL / IJN: [id number] /
[2023-03-20] MEDS: diphenhydrAMINE 50 MG/ML 1 ML VIAL IVP PRN ×2 (02:15→23:26)
[2023-03-20] MEDS ORDERED: guaiFENesin-DM 100-10MG/5ML 10 ML CUP PO PRN (05:34)
[2023-03-20] MEDS ORDERED: ACETAMINOPHEN TAB 325 MG TAB PO PRN (05:34)
[2023-03-20] MEDS: PANTOPRAZOLE 40 MG TABLET PO SCH (05:43)
[2023-03-20] MEDS: LACTATED RINGERS 1,000 ML IV SCH ×3 (05:43→14:15)
[2023-03-20 08:27] LABS: Basophils # (A) 0.04 X 10*3/uL (0.00-0.10); Basophils % (A) 0.3 %; Eosinophils # (A) 0.17 X 10*3/uL (0.04-0.35); Eosinophils % (A) 1.2 %; HCT 21.7 % (39.6-50.0); HGB 7.1 g/dL (13.0-17.0); Lymphocytes # (A) 2.25 X 10*3/uL (0.90-5.00); Lymphocytes % (A) 15.9 %; MCH 30.9 pg (27.0-32.0); MCHC 32.7 g/dL (32.0-37.0); MCV 94.3 FL (80.0-97.0); Mean Platelet Volume 8.6 FL (9.5-12.2); Monocytes # (A) 1.44 X 10*3/uL (0.20-1.00); Monocytes % (A) 10.2 %; NRBC Per 100 WBC 0 X 10*3/uL (0.00-0.01); Neutrophils # (A) 10.14 X 10*3/uL (1.80-7.70); Neutrophils % (A) 71.8 %; Platelet Count 453 X 10*3/uL (140-440); RDW 17.4 % (11.5-14.5); WBC 14.12 X 10*3/uL (4.50-10.00)
[2023-03-20 09:10] LABS: ALT 18 U/L (10-49); AST 16 U/L (14-35); Albumin 2.8 g/dL (3.8-4.9); Albumin/Globulin Ratio 1.22 Ratio (1.60-3.17); Alkaline Phosphatase 303 U/L (41-126); BUN/Creat Ratio 27.62 Ratio (12.00-20.00); Blood Urea Nitrogen 22.1 mg/dL (9.0-27.0); Calcium 8.5 mg/dL (8.7-10.3); Carbon Dioxide 23.4 mmol/L (21.6-31.8); Chloride 103 mmol/L (96-109); Globulin 2.3 g/dL (1.6-3.3); Glucose 94 mg/dL (70-110); Sodium 137 mmol/L (135-145); Total Bilirubin 0.5 mg/dL (0.3-1.2); Total Protein 5.1 g/dL (6.2-8.2)
[2023-03-20] MEDS: NICOTINE 14MG/24HR PATCH TRANSDERM SCH (09:42)
--- NOTE | 2023-03-20 10:44 | CDI ---
Documentation Clarification Form Date: 03/20/2023 10:21:07 AM From: Heather Edmondson Phone: [phone] Admit Date: 03/18/2023 11:03:00 AM Patient Name: Julius Reynoso Visit Number: [id number] Discharge Date: ATTENTION: The Clinical Documentation Specialists (CDI) and [facility] Coding Staff appreciate your assistance in clarifying documentation. Please respond to the clarification below the line at the bottom and electronically sign. The CDI & [facility] Coding staff will review the response and follow-up if needed. Please note: Queries are made part of the Legal Health Record. If you have any questions, please contact the author of this message via ITS. Dr. Fely Izquierdo Conflicting documentation has been found in the medical record. As attending physician, please provide clarification. Mild protein calorie malnutrition, 03/19, Medicine consult. Chronic severe malnutrition, 03/19, Nutritional Assessment History/Risk Factors: 73 year old male presented for elective diverting colostomy. Medical history: Bladder cancer, Iron deficiency anemia, nicotine dependence and PE. Medicine consult, 03/19. Clinical Indicators: RD Consult Assessment: Current BMI:17.7kg Hgt 5ft 10in Wgt 56kg Body mass index underweight Weight loss 17kg due to decreased intake secondary to bladder cancer. A duration 23% weight loss x 8 months. Kcal Needs 1680 1960Kcal due to increased needs because patient is hypermetabolic. Protein Needs 67 - 84grams day. 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 Related to: decreased appetite and poor PO intake caused by chemotherapy for bladder CA 23% weight loss x 8 months, low BMI of 17.7. [Cite applicable ASPEN criteria listed below] Treatment: low fiber diet upon discharge, General healthful diet Supplements: Ensure enlive when diet advanced Please clarify which diagnosis is most appropriate: [ ] Mild Protein-Calorie Malnutrition [ ] Chronic Severe Protein-Calorie Malnutrition [ ] Other (please specify) [ ] Unable to determine Reference: Using the ASPEN Guidelines, Undernutrition (Malnutrition) is characterized by at least two of the following six findings. The severity can be determined based on the criteria listed below. Malnutrition Characteristics for Moderate and Severe Malnutrition Type of Malnutrition Acute Illness or Injury Chronic Illness Degree of Malnutrition Non-severe (moderate) Malnutrition Severe Malnutrition Non-severe (moderate) Malnutrition Severe Malnutrition Energy Intake <75% for >7 days = 50% for = 5 days <75% for = 1 month =75% for = 1 month Weight Loss 1-2% in one week, 5% in 1 month, 7.5% in 3 months 2% in one week, >5% in 1 month, >7.5% in 3 months 5% in one month, 7.5% in 3 months, 10% in 6 months, 20% in 1 year >5% in one month, >7.5% in 3 months, >10% in 6 months, >20% in 1 year Body Fat Wasting Mild Moderate Mild Severe Muscle Wasting Mild Moderate Mild Severe Presence of Edema Mild Moderate to Severe Mild Severe Hospital Liaison Strength Not applicable Measurably Reduced Not applicable Measurably Reduced Source: Familia RiveroV, Hugo P, Mack G, et al. Consensus statement: Academy of Nutrition and Dietetics and [place] Society for Parenteral and Enteral Nutrition: characteristics recommended for the identification and documentation of adult malnutrition (undernutrition).JAMEE J Parenter Enteral Nutr. 2012;36(3):275-283. (Template Last Revised: July 2020) Mild Protein-Calorie Malnutrition MTDD
--- NOTE | 2023-03-20 12:58 | P.PN ---
Subjective Progress Note Date: 03/20/23 CHIEF COMPLAINT: Colovesical fistula HISTORY OF PRESENT ILLNESS: Patient is postop day #2 status post diverting colostomy. Patient has epidural for pain control. Patient is sitting up in bed. He reports his pain is controlled. No output through the ostomy. Denies any nausea or vomiting. Mildly tachycardic. Resolved. Hypotension improved. WBC is up from 12-14.12 Hgb 8.2 down to 7.1 PHYSICAL EXAM: VITAL SIGNS: Reviewed. GENERAL: Well-developed in no acute distress. ABDOMEN: Soft. Nondistended. Incision site clean dry and intact. Ostomy on the left with beefy red stoma. No stool output. Sanguinous drainage noted. Patient has a urostomy on the right. NEUROLOGIC: Alert and oriented. Cranial nerves II through XII grossly intact. ASSESSMENT: 1. Colovesical fistula Status post diverting colostomy 2. Dilutional anemia status post blood transfusion 3. History of bladder cancer PLAN: -Continue clear liquids -Change incisional dressing to Optifoam Ag -Continue epidural for pain management -Encouraged patient ambulate -Continue IV fluids -Repeat hemoglobin in AM -Encouraged patient to use incentive spirometer -Continue epidural for pain control -DVT prophylaxis SCDs Physician Cook Specialty note has been reviewed by physician. Signing provider agrees with the documented findings, assessment, and plan of care. Objective - Vital Signs Vital signs: Vital Signs Temp 98.3 F 03/20/23 12:00 Pulse 91 03/20/23 12:00 Resp 18 03/20/23 12:00 BP 102/61 03/20/23 12:00 Pulse Ox 93 L 03/20/23 12:00 FiO2 Intake & Output 03/19/23 03/20/23 03/20/23 18:59 06:59 18:59 Intake Total 720 Output Total 400 750 Balance 320 -750 Weight 56 kg Intake: Oral 720 Output: Urine 400 750 - Labs CBC & Chem 7: 03/20/23 06:17 03/20/23 06:17 Labs: Abnormal Lab Results - Last 24 Hours (Table) 03/20/23 03/20/23 Range/Units 06:17 06:17 WBC 14.12 H (4.50-10.00) X 10*3/uL RBC 2.30 L (4.40-5.60) X 10*6/uL Hgb 7.1 L (13.0-17.0) g/dL Hct 21.7 L (39.6-50.0) % RDW 17.4 H (11.5-14.5) % Plt Count 453 H (140-440) X 10*3/uL MPV 8.6 L (9.5-12.2) FL Neutrophils # 10.14 H (1.80-7.70) X 10*3/uL Monocytes # 1.44 H (0.20-1.00) X 10*3/uL BUN/Creatinine Ratio 27.62 H (12.00-20.00) Ratio Calcium 8.5 L (8.7-10.3) mg/dL Alkaline Phosphatase 303 H (41-126) U/L Total Protein 5.1 L (6.2-8.2) g/dL Albumin 2.8 L (3.8-4.9) g/dL Albumin/Globulin Ratio 1.22 L (1.60-3.17) Ratio
--- NOTE | 2023-03-20 14:58 | P.PN ---
Progress Note - Text Progress Note Date: 03/20/23 Postoperative day # 2 status post diverting colostomy epidural catheter placed for postoperative analgesia, patient doing well epidural site okay, patient currently on combination of epidural infusion solution of Ropivacaine 0.0625% and Dilaudid 20 g per mL the infusion rate at 3 ml per hour , patient had no motor deficit epidural site okay, patient had some numbness in his lower extremity with the higher infusion rate , vital signs stable ,VAS 2 /10 , Assessment and plan= post operative day # 2 patient doing well ,pain well controlled , there is no anesthesia related complications Patient was seen at 7:00 in the morning
[2023-03-20] MEDS: PIPERACILLIN-TAZOBACTAM 3.375 GM in SODIUM CHLORIDE 0.9% 100 ML IVPB SCH ×2 (15:43→23:23)
[2023-03-20] MEDS: ROPIVACAINE 250 MG, HYDROMORPHONE (PF) 5 MG in SODIUM CHLORIDE 0.9% 200 ML EPIDURAL PRN (18:57)
[2023-03-20] MEDS: HEPARIN SODIUM,PORCINE 5,000 UNIT/ML 1 ML VIAL SQ SCH ×2 (20:13→20:15)
--- NOTE | 2023-03-20 20:34 | PN ---
PROGRESS NOTE DATE OF SERVICE: 03/20/2023 SUBJECTIVE: This is a 73-year-old gentleman, who was admitted after diverting colostomy is being closely monitored. No chest pain. No palpitations. No fever. OBJECTIVE: VITAL SIGNS: Pulse is 91, blood pressure 102/66, respirations 18. CHEST: Clear to auscultation. ABDOMEN: Soft, status post surgery. LABORATORY DATA: Noted. Hemoglobin 7.1. ASSESSMENT: 1. Status post diverting colostomy for colovesical fistula. 2. Relative hypotension. 3. Chronic anemia, possibly secondary to malignancy. 4. History of pulmonary embolism. 5. History of iron deficiency anemia. 6. History of nicotine dependence. 7. Mild protein-calorie malnutrition. DISCUSSION AND RECOMMENDATIONS: Recommended to continue current management and continue symptomatic treatment. I recommend 1 unit of transfusion with PRBCs and for symptomatic anemia. Otherwise, recommend repeat labs. DVT prophylaxis. Further recommendations to follow. MMODL / IJN: [id number] /
[2023-03-21] MEDS: PIPERACILLIN-TAZOBACTAM 3.375 GM in SODIUM CHLORIDE 0.9% 100 ML IVPB SCH ×3 (08:04→23:50)
[2023-03-21] MEDS: PANTOPRAZOLE 40 MG TABLET PO SCH (08:04)
[2023-03-21] MEDS: LACTATED RINGERS 1,000 ML IV SCH ×2 (08:09→13:36)
[2023-03-21] MEDS: HEPARIN SODIUM,PORCINE 5,000 UNIT/ML 1 ML VIAL SQ SCH (08:16)
[2023-03-21] MEDS: NICOTINE 14MG/24HR PATCH TRANSDERM SCH (08:17)
--- NOTE | 2023-03-21 09:16 | P.PN ---
Progress Note - Text Progress Note Date: 03/21/23 Postoperative day # 3 status post diverting colostomy epidural catheter placed for postoperative analgesia, patient doing well epidural site okay, patient currently on combination of epidural infusion solution of Ropivacaine 0.0625% and Dilaudid 20 g per mL the infusion rate at 3 ml per hour , patient had no motor deficit epidural site okay, patient had some numbness in his lower extremity with the higher infusion rate , vital signs stable ,VAS 2 /10 , Assessment and plan= post operative day # 3 patient doing well ,pain well controlled , there is no anesthesia related complications We will discontinue all epidural catheter today Patient was seen at 7:00 in the morning
[2023-03-21] MEDS ORDERED: HYDROmorphone 1 MG/ML 1 ML SYRINGE IVP PRN (10:41)
--- NOTE | 2023-03-21 12:04 | P.PN ---
Subjective Progress Note Date: 03/21/23 CHIEF COMPLAINT: Colovesical fistula HISTORY OF PRESENT ILLNESS: Patient is postop day #3 status post diverting colostomy. Patient reports his pain is controlled. He did have nausea last night. Which resolved after Zofran. He did receive 1 unit of blood yesterday for hemoglobin of 7.1. Labs for today are pending. He is scheduled to have epidural discontinued this morning. No output through the ostomy. Afebrile. PHYSICAL EXAM: VITAL SIGNS: Reviewed. GENERAL: Well-developed in no acute distress. ABDOMEN: Soft. Nondistended. Optifoam dressing clean dry and intact. Ostomy on the left with beefy red stoma. No stool output. Sanguinous drainage noted. Patient has a urostomy on the right. NEUROLOGIC: Alert and oriented. Cranial nerves II through XII grossly intact. ASSESSMENT: 1. Colovesical fistula Status post diverting colostomy 2. Dilutional anemia status post blood transfusion 3. History of bladder cancer PLAN: -Discontinue epidural today -IV Dilaudid and [place] as needed added for pain management -Continue clear liquids -Encouraged patient ambulate -Repeat labs in AM -Encouraged patient to use incentive spirometer -Possible discharge tomorrow -DVT prophylaxis subcu heparin Physician Practice Manager note has been reviewed by physician. Signing provider agrees with the documented findings, assessment, and plan of care. Objective - Vital Signs Vital signs: Vital Signs Temp 98.3 F 03/21/23 07:25 Pulse 86 03/21/23 07:25 Resp 18 03/21/23 07:25 BP 110/69 03/21/23 07:25 Pulse Ox 91 L 03/21/23 07:25 FiO2 Intake & Output 03/20/23 03/21/23 03/21/23 18:59 06:59 18:59 Intake Total 75 510 Output Total 510 950 600 Balance -435 -440 -600 Intake: Intake, IV Titration 75 Amount Ropivacaine 250 mg 75 Hydromorphone (Pf) 5 mg In Sodium Chloride 0.9% 200 ml @ Per Protocol EPIDURAL .Q0M PRN Rx#: [id number] Oral 200 Blood Product 0 310 Rc As-1 Unit 0 310 [id number] Output: Urine 510 750 600 urostomy 260 Stool 200 - Labs CBC & Chem 7: 03/20/23 06:17 03/20/23 06:17 Labs: Abnormal Lab Results - Last 24 Hours (Table) 03/18/23 Range/Units 11:50 Crossmatch See Detail
[2023-03-21 13:15] LABS: Basophils # (A) 0.04 X 10*3/uL (0.00-0.10); Basophils % (A) 0.3 %; Eosinophils # (A) 0.31 X 10*3/uL (0.04-0.35); Eosinophils % (A) 2.3 %; HCT 25.8 % (39.6-50.0); HGB 8.4 g/dL (13.0-17.0); Lymphocytes % (A) 13.2 %; MCHC 32.6 g/dL (32.0-37.0); MCV 92.1 FL (80.0-97.0); Mean Platelet Volume 8.8 FL (9.5-12.2); Monocytes # (A) 1.29 X 10*3/uL (0.20-1.00); Monocytes % (A) 9.5 %; NRBC Per 100 WBC 0 X 10*3/uL (0.00-0.01); Neutrophils # (A) 10.16 X 10*3/uL (1.80-7.70); Neutrophils % (A) 74.4 %; Platelet Count 462 X 10*3/uL (140-440); RDW 19.8 % (11.5-14.5); WBC 13.64 X 10*3/uL (4.50-10.00)
[2023-03-21] MEDS ORDERED: [UNRECOGNIZED DRUG - OTHER] PO SCH (13:27)
[2023-03-21 13:48] LABS: BUN/Creat Ratio 33.33 Ratio (12.00-20.00); Calcium 8.6 mg/dL (8.7-10.3); Carbon Dioxide 22.6 mmol/L (21.6-31.8); Chloride 103 mmol/L (96-109); Glucose 72 mg/dL (70-110); Potassium 4.5 mmol/L (3.5-5.5); Sodium 138 mmol/L (135-145)
[2023-03-21] MEDS: [UNRECOGNIZED DRUG - OTHER] PO SCH (14:47)
[2023-03-21] MEDS: HYDROcodone/APAP 5-325MG 1 EACH TAB PO PRN ×2 (17:53→23:49)
--- NOTE | 2023-03-21 22:13 | PN ---
PROGRESS NOTE DATE OF SERVICE: 03/21/2023 SUBJECTIVE: This is a 73-year-old gentleman, who was admitted with diverting colostomy and colovesical fistula, is being closely monitored. No chest pain. No palpitations. No fever. OBJECTIVE: VITAL SIGNS: Pulse 86, blood pressure 120/69, respirations 18. CHEST: Scattered rhonchi and crackles. ABDOMEN: Soft, status post surgery. NERVOUS SYSTEM: Nonfocal. LABORATORY DATA: Reviewed. Hemoglobin is 8.4. ASSESSMENT: 1. Status post diverting colostomy, colovesical fistula. 2. Relative hypotension, improved. 3. Chronic anemia possibly secondary to malignancy, status post transfusion for symptomatic anemia. 4. History of pulmonary embolism. 5. History of iron deficiency anemia. 6. History of nicotine dependence. 7. Mild protein-calorie malnutrition. RECOMMENDATIONS AND DISCUSSION: Recommend to continue current medications, continue symptomatic treatment. Otherwise, at this time, I would recommend repeat labs, incentive spirometry. Closely follow with Surgery. Further recommendations to follow. MMODL / IJN: [id number] /
[2023-03-22] MEDS: LACTATED RINGERS 1,000 ML IV SCH ×3 (01:49→23:57)
[2023-03-22] MEDS: PANTOPRAZOLE 40 MG TABLET PO SCH (06:29)
[2023-03-22] MEDS: HEPARIN SODIUM,PORCINE 5,000 UNIT/ML 1 ML VIAL SQ SCH ×2 (08:20→22:57)
[2023-03-22] MEDS: NICOTINE 14MG/24HR PATCH TRANSDERM SCH (08:21)
[2023-03-22] MEDS: PIPERACILLIN-TAZOBACTAM 3.375 GM in SODIUM CHLORIDE 0.9% 100 ML IVPB SCH ×2 (08:25→16:23)
[2023-03-22] MEDS: [UNRECOGNIZED DRUG - OTHER] PO SCH (08:25)
[2023-03-22 10:51] LABS: Basophils # (A) 0.03 X 10*3/uL (0.00-0.10); Basophils % (A) 0.2 %; Eosinophils # (A) 0.29 X 10*3/uL (0.04-0.35); Eosinophils % (A) 2.1 %; HCT 26.2 % (39.6-50.0); HGB 8.6 g/dL (13.0-17.0); Lymphocytes # (A) 1.35 X 10*3/uL (0.90-5.00); Lymphocytes % (A) 9.9 %; MCH 30.4 pg (27.0-32.0); MCHC 32.8 g/dL (32.0-37.0); MCV 92.6 FL (80.0-97.0); Mean Platelet Volume 8.5 FL (9.5-12.2); Monocytes # (A) 0.94 X 10*3/uL (0.20-1.00); Monocytes % (A) 6.9 %; NRBC Per 100 WBC 0 X 10*3/uL (0.00-0.01); Neutrophils # (A) 10.93 X 10*3/uL (1.80-7.70); Neutrophils % (A) 80.3 %; Platelet Count 455 X 10*3/uL (140-440); RBC 2.83 X 10*6/uL (4.40-5.60); RDW 18.7 % (11.5-14.5); WBC 13.62 X 10*3/uL (4.50-10.00)
[2023-03-22 11:17] LABS: BUN/Creat Ratio 23.17 Ratio (12.00-20.00); Blood Urea Nitrogen 13.9 mg/dL (9.0-27.0); Calcium 8.4 mg/dL (8.7-10.3); Carbon Dioxide 20.7 mmol/L (21.6-31.8); Chloride 102 mmol/L (96-109); Glucose 74 mg/dL (70-110); Potassium 4.6 mmol/L (3.5-5.5); Sodium 134 mmol/L (135-145)
--- NOTE | 2023-03-22 13:54 | PN ---
PROGRESS NOTE DATE OF SERVICE: 03/22/2023 SUBJECTIVE: This is a 73-year-old gentleman, who was admitted after diverting colostomy, had some relative hypotension which is improving at this time. No chest pain. No palpitations. No fever. PHYSICAL EXAMINATION: VITAL SIGNS: Pulse 91, blood pressure 108/68, respirations 16. CHEST: Clear to auscultation. CARDIOVASCULAR: S1 and S2. ABDOMEN: Soft. Status post surgery. LABORATORY DATA: Reviewed. ASSESSMENT: 1. Status post diverting colostomy, colovesical fistula. 2. Relative hypotension, improved. 3. Chronic anemia, possibly secondary to malignancy, status post transfusion for symptomatic anemia. 4. Increased WBC. 5. History of pulmonary embolism. 6. History of iron deficiency anemia. 7. History of nicotine dependence. 8. Mild protein-calorie malnutrition. RECOMMENDATIONS: Recommend to continue current medications. Continue symptomatic treatment. Repeat labs. Otherwise, I would also recommend UA with micro and urine culture. Prognosis is guarded. Further recommendations to follow. MMODL / IJN: [id number] /
--- NOTE | 2023-03-22 15:26 | P.PN ---
Subjective Progress Note Date: 03/22/23 CHIEF COMPLAINT: Colovesical fistula HISTORY OF PRESENT ILLNESS: Patient is postop day #4 status post diverting colostomy. Epidural was discontinued yesterday. Patient reports his pain is controlled. Patient denies any nausea or vomiting. He is sick of the clear liquids and would like diet advanced. No stool output from the ostomy. Afebrile. WBC 13.6 2H to be 8.6 sodium is 134 potassium 4.6 creatinine 0.6 PHYSICAL EXAM: VITAL SIGNS: Reviewed. GENERAL: Well-developed in no acute distress. ABDOMEN: Soft. Nondistended. Optifoam dressing clean dry and intact. Ostomy on the left with beefy red stoma. No stool output. Sanguinous drainage noted. Patient has a urostomy on the right. NEUROLOGIC: Alert and oriented. Cranial nerves II through XII grossly intact. ASSESSMENT: 1. Colovesical fistula Status post diverting colostomy 2. Dilutional anemia status post blood transfusion 3. History of bladder cancer 4. Leukocytosis PLAN: -Advance diet to full liquids -Encouraged patient ambulate -Continue pain management -Continue antibiotics -Repeat labs in AM -Encouraged patient to use incentive spirometer -DVT prophylaxis subcu heparin Physician Sales Representative [employer] note has been reviewed by physician. Signing provider agrees with the documented findings, assessment, and plan of care. Objective - Vital Signs Vital signs: Vital Signs Temp 98.6 F 03/22/23 08:00 Pulse 91 03/22/23 08:00 Resp 16 03/22/23 08:00 BP 108/68 03/22/23 08:00 Pulse Ox 94 L 03/22/23 08:00 FiO2 Intake & Output 03/21/23 03/22/23 03/22/23 18:59 06:59 18:59 Output Total 1700 Balance -1700 Output: Urine 1700 Other: Voiding Method Indwelling Catheter - Labs CBC & Chem 7: 03/22/23 06:30 03/22/23 06:30 Labs: Abnormal Lab Results - Last 24 Hours (Table) 03/21/23 03/21/23 03/22/23 Range/Units 06:39 06:39 06:30 WBC 13.64 H 13.62 H (4.50-10.00) X 10*3/uL RBC 2.80 L 2.83 L (4.40-5.60) X 10*6/uL Hgb 8.4 L 8.6 L (13.0-17.0) g/dL Hct 25.8 L 26.2 L (39.6-50.0) % RDW 19.8 H 18.7 H (11.5-14.5) % Plt Count 462 H 455 H (140-440) X 10*3/uL MPV 8.8 L 8.5 L (9.5-12.2) FL Neutrophils # 10.16 H 10.93 H (1.80-7.70) X 10*3/uL Monocytes # 1.29 H (0.20-1.00) X 10*3/uL Sodium (135-145) mmol/L Carbon Dioxide (21.6-31.8) mmol/L Anion Gap 12.40 H (4.00-12.00) mmol/L BUN/Creatinine Ratio 33.33 H (12.00-20.00) Ratio Calcium 8.6 L (8.7-10.3) mg/dL 03/22/23 Range/Units 06:30 WBC (4.50-10.00) X 10*3/uL RBC (4.40-5.60) X 10*6/uL Hgb (13.0-17.0) g/dL Hct (39.6-50.0) % RDW (11.5-14.5) % Plt Count (140-440) X 10*3/uL MPV (9.5-12.2) FL Neutrophils # (1.80-7.70) X 10*3/uL Monocytes # (0.20-1.00) X 10*3/uL Sodium 134 L (135-145) mmol/L Carbon Dioxide 20.7 L (21.6-31.8) mmol/L Anion Gap (4.00-12.00) mmol/L BUN/Creatinine Ratio 23.17 H (12.00-20.00) Ratio Calcium 8.4 L (8.7-10.3) mg/dL
[2023-03-22] MEDS: HYDROcodone/APAP 5-325MG 1 EACH TAB PO PRN (16:25)
[2023-03-23] MEDS: PIPERACILLIN-TAZOBACTAM 3.375 GM in SODIUM CHLORIDE 0.9% 100 ML IVPB SCH ×3 (00:01→16:41)
[2023-03-23] MEDS: HYDROcodone/APAP 5-325MG 1 EACH TAB PO PRN ×3 (01:35→20:53)
[2023-03-23 01:51] LABS: Appearance,Urine Turbid (Clear); Bilirubin,Urine Negative (Negative); Blood,Urine Negative (Negative); Color,Urine Colorless; Glucose,Urine (UA) Negative (Negative); Hyaline Casts,Urine 9 /lpf (0-2); Ketones,Urine 2+ (Negative); Leukocyte Esterase,Urine Trace (Negative); Mucus,Urine Few /hpf; Nitrite,Urine Positive (Negative); PH, Urine 6.5 (5.0-8.0); Protein,Urine Negative (Negative); RBC,Urine 7 /hpf (0-5); Specific Gravity,Urine 1.014 (1.001-1.035); Urobilinogen,Urine <2.0 mg/dL (<2.0); WBC,Urine 18 /hpf (0-5)
[2023-03-23] MEDS: LACTATED RINGERS 1,000 ML IV SCH ×3 (05:02→13:59)
[2023-03-23] MEDS: PANTOPRAZOLE 40 MG TABLET PO SCH (06:42)
[2023-03-23 07:54] LABS: African American GFR (CKD) >90 (>60 ml/min/1.73 sqM); Anion Gap 9 mmol/L; Blood Urea Nitrogen 13 mg/dL (9-20); Calcium 8.6 mg/dL (8.4-10.2); Carbon Dioxide 21 mmol/L (22-30); Chloride 102 mmol/L (98-107); Glucose 100 mg/dL (74-99); Non-African American GFR(CKD) >90 (>60 ml/min/1.73 sqM); Sodium 132 mmol/L (137-145)
[2023-03-23 08:06] LABS: Anisocytosis Slight; Basophils % (A) 0 %; Eosinophils # (A) 0.3 k/uL (0-0.7); Eosinophils % (A) 2 %; HCT 29.2 % (39.0-53.0); HGB 9.3 gm/dL (13.0-17.5); Lymphocytes # (A) 1.4 k/uL (1.0-4.8); Lymphocytes % (A) 12 %; MCH 29.7 pg (25.0-35.0); MCV 92.8 fL (80.0-100.0); Mean Platelet Volume 7.3; Monocytes # (A) 0.6 k/uL (0-1.0); Monocytes % (A) 5 %; Neutrophils # (A) 9.1 k/uL (1.3-7.7); Neutrophils % (A) 79 %; Platelet Count 513 k/uL (150-450); RBC 3.15 m/uL (4.30-5.90); RDW 18.1 % (11.5-15.5); WBC 11.5 k/uL (3.8-10.6)
[2023-03-23] MEDS: HEPARIN SODIUM,PORCINE 5,000 UNIT/ML 1 ML VIAL SQ SCH ×2 (08:13→20:48)
[2023-03-23] MEDS: [UNRECOGNIZED DRUG - OTHER] PO SCH (08:13)
[2023-03-23] MEDS: NICOTINE 14MG/24HR PATCH TRANSDERM SCH (08:13)
--- NOTE | 2023-03-23 14:05 | XR ---
EXAMINATION TYPE: XR knee complete LT DATE OF EXAM: 03/23/2023 COMPARISON: None HISTORY: 73-year-old male DJD, chronic worsening left knee pain TECHNIQUE: 3 views FINDINGS: There is moderate to severe narrowing of medial compartment joint space. Generalized muscle atrophy. No sizable joint effusion. Extensor mechanism appears intact. No acute fracture, subluxation, disloca tion. IMPRESSION: Moderate to severe joint space narrowing in the medial compartment. Diffuse muscle atrophy. No acute osseous abnormality seen.
--- NOTE | 2023-03-23 14:45 | PN ---
PROGRESS NOTE DATE OF SERVICE: 03/23/2023 SUBJECTIVE: This is a 73-year-old gentleman, who was admitted after diverting colostomy and colovesical fistula. He is improving significantly. No chest pain. No palpitations. No fever. The patient is complaining of left knee pain. PHYSICAL EXAMINATION: VITAL SIGNS: Pulse 89, blood pressure 110/72, respirations 19. CHEST: Clear to auscultation. CARDIOVASCULAR: S1 and S2. ABDOMEN: Soft. NERVOUS SYSTEM: Nonfocal. LABORATORY DATA: Noted. ASSESSMENT: 1. Status post diverting colostomy, colovesical fistula. 2. Left knee pain. 3. Relative hypotension, improved. 4. Chronic anemia, possibly secondary to malignancy, status post transfusion for symptomatic anemia. 5. Increased WBC. 6. History of pulmonary embolism. 7. History of iron deficiency anemia. 8. History of nicotine dependence. 9. Mild protein-calorie malnutrition. RECOMMENDATIONS: Recommend to continue current medications. Continue symptomatic treatment. Otherwise, I would recommend Lovenox, monitor hemoglobin closely, and I would also recommend serum uric acid and x-ray of the knee also. MMODL / IJN: [id number] /
[2023-03-24] MEDS: PIPERACILLIN-TAZOBACTAM 3.375 GM in SODIUM CHLORIDE 0.9% 100 ML IVPB SCH ×4 (00:18→23:50)
[2023-03-24] MEDS: HYDROcodone/APAP 5-325MG 1 EACH TAB PO PRN ×3 (02:41→19:24)
[2023-03-24] MEDS: LACTATED RINGERS 1,000 ML IV SCH ×3 (05:55→20:18)
[2023-03-24] MEDS: PANTOPRAZOLE 40 MG TABLET PO SCH (06:32)
[2023-03-24] MEDS: NICOTINE 14MG/24HR PATCH TRANSDERM SCH (08:36)
[2023-03-24] MEDS: [UNRECOGNIZED DRUG - OTHER] PO SCH (08:36)
[2023-03-24] MEDS: HEPARIN SODIUM,PORCINE 5,000 UNIT/ML 1 ML VIAL SQ SCH ×2 (08:37→20:18)
[2023-03-24 08:45] LABS: Basophils # (A) 0.04 X 10*3/uL (0.00-0.10); Basophils % (A) 0.3 %; Eosinophils # (A) 0.51 X 10*3/uL (0.04-0.35); Eosinophils % (A) 4.3 %; HCT 27.2 % (39.6-50.0); Lymphocytes # (A) 1.76 X 10*3/uL (0.90-5.00); Lymphocytes % (A) 14.7 %; MCH 30.3 pg (27.0-32.0); MCHC 33.1 g/dL (32.0-37.0); MCV 91.6 FL (80.0-97.0); Mean Platelet Volume 8.5 FL (9.5-12.2); Monocytes # (A) 1.26 X 10*3/uL (0.20-1.00); Monocytes % (A) 10.5 %; NRBC Per 100 WBC 0 X 10*3/uL (0.00-0.01); Neutrophils # (A) 8.36 X 10*3/uL (1.80-7.70); Neutrophils % (A) 69.8 %; Platelet Count 523 X 10*3/uL (140-440); RBC 2.97 X 10*6/uL (4.40-5.60); RDW 17.6 % (11.5-14.5); WBC 11.98 X 10*3/uL (4.50-10.00)
[2023-03-24 08:50] LABS: BUN/Creat Ratio 17.67 Ratio (12.00-20.00); Blood Urea Nitrogen 10.6 mg/dL (9.0-27.0); Calcium 8.8 mg/dL (8.7-10.3); Carbon Dioxide 23.1 mmol/L (21.6-31.8); Chloride 102 mmol/L (96-109); Glucose 94 mg/dL (70-110); Potassium 3.9 mmol/L (3.5-5.5); Sodium 136 mmol/L (135-145)
--- NOTE | 2023-03-24 10:13 | P.PN ---
Progress Note - Text Progress Note Date: 03/24/23 Patient [place] stable. He's had had some issues with his colostomy appliance leaking. On exam vital signs appear stable. Abdomen soft skin incision is healing. Colostomy is functioning the colostomy is pink. Status post diverting colostomy for history of colovesical fistula. Patient will most likely be discharged home tomorrow.
--- NOTE | 2023-03-24 11:49 | PN ---
PROGRESS NOTE DATE OF SERVICE: 03/24/2023 SUBJECTIVE: This is a 73-year-old gentleman, who was admitted after diverting colostomy, also complains of severe left knee pain. No chest pain. No palpitations. No fever. PHYSICAL EXAMINATION: VITAL SIGNS: Pulse 79, blood pressure n, respirations 17. CHEST: Clear to auscultation. CARDIOVASCULAR: S1 and S2. ABDOMEN: Soft. Status post surgery. LABORATORY DATA: Reviewed. ASSESSMENT: 1. Status post diverting colostomy, colovesical fistula. 2. Severe left pain with severe degenerative joint disease. 3. improved. 4. 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 5. Increased WBC. 6. History of pulmonary embolism. 7. History of iron deficiency anemia. 8. History of nicotine dependence. 9. Mild protein-calorie malnutrition. RECOMMENDATIONS: Recommend to continue current medications. Continue symptomatic treatment. Continue the pain management. The patient might require orthopedic evaluation and steroid injection for the knee since the patient is not getting better. Further recommendations to follow. MMODL / IJN: [id number] / MTDD
[2023-03-25] MEDS: HYDROcodone/APAP 5-325MG 1 EACH TAB PO PRN ×2 (00:48→09:03)
[2023-03-25 03:11] VITALS: RESP 16
[2023-03-25] MEDS: PANTOPRAZOLE 40 MG TABLET PO SCH (06:20)
[2023-03-25 07:53] VITALS: BP 115/72; PULSE 76; TEMP 98.2
[2023-03-25] MEDS: LACTATED RINGERS 1,000 ML IV SCH (08:50)
[2023-03-25] MEDS: NICOTINE 14MG/24HR PATCH TRANSDERM SCH (08:50)
[2023-03-25] MEDS: PIPERACILLIN-TAZOBACTAM 3.375 GM in SODIUM CHLORIDE 0.9% 100 ML IVPB SCH (08:50)
[2023-03-25] MEDS: HEPARIN SODIUM,PORCINE 5,000 UNIT/ML 1 ML VIAL SQ SCH (08:50)
[2023-03-25] MEDS: [UNRECOGNIZED DRUG - OTHER] PO SCH (08:53)
[2023-03-25 11:06] LABS: Basophils # (A) 0.06 X 10*3/uL (0.00-0.10); Basophils % (A) 0.5 %; Eosinophils # (A) 0.55 X 10*3/uL (0.04-0.35); Eosinophils % (A) 4.9 %; HCT 27.8 % (39.6-50.0); HGB 8.7 g/dL (13.0-17.0); Lymphocytes # (A) 1.58 X 10*3/uL (0.90-5.00); Lymphocytes % (A) 14.2 %; MCH 29.9 pg (27.0-32.0); MCHC 31.3 g/dL (32.0-37.0); MCV 95.5 FL (80.0-97.0); Mean Platelet Volume 9.3 FL (9.5-12.2); Monocytes # (A) 1.09 X 10*3/uL (0.20-1.00); Monocytes % (A) 9.8 %; NRBC Per 100 WBC 0 X 10*3/uL (0.00-0.01); Neutrophils # (A) 7.79 X 10*3/uL (1.80-7.70); Neutrophils % (A) 70.1 %; Platelet Count 546 X 10*3/uL (140-440); RBC 2.91 X 10*6/uL (4.40-5.60); RDW 17.4 % (11.5-14.5); WBC 11.13 X 10*3/uL (4.50-10.00)
[2023-03-25 11:58] LABS: BUN/Creat Ratio 17.14 Ratio (12.00-20.00); Calcium 8.8 mg/dL (8.7-10.3); Carbon Dioxide 23.1 mmol/L (21.6-31.8); Chloride 103 mmol/L (96-109); Glucose 94 mg/dL (70-110); Potassium 3.8 mmol/L (3.5-5.5); Sodium 136 mmol/L (135-145)
--- NOTE | 2023-03-25 12:04 | P.DS ---
Providers Date of admission: 03/18/23 11:03 Expected date of discharge: 03/25/23 Attending physician: Jordan Penny Consults: 03/18/23 19:24 Consult Physician Routine Consulting Provider: Fely Izquierdo Consult Reason/Comments: medical management Do you want consulting provider notified?: Yes [facility] care [facility]: [facility] Course: Discharge diagnosis 1. Colovesical fistula status post diverting colostomy 2. Leukocytosis Hospital course This is a 73-year-old male with a colovesical fistula. He is status post diverting colostomy. His ostomy is functioning. He is tolerating diet. He is afebrile. He has been up and ambulating. His pain is controlled. He does have leukocytosis and will be discharged with oral antibiotics. Incision site clean dry and intact. He is stable for discharge. Please refer to chart for any further details. Physician Head Porter [employer] note has been reviewed by physician. Signing provider agrees with the documented findings, assessment, and plan of care. Patient Condition at Discharge: Stable Plan - Discharge Summary Discharge Rx Participant: No New Discharge Prescriptions: New metroNIDAZOLE [Flagyl] 500 mg PO TID 7 Days #21 tab Levofloxacin [Levaquin] 500 mg PO DAILY 7 Days #7 tab Continue HYDROcodone/APAP 7.5-325MG [[place] 7.5-325] 1 tab PO Q4H PRN PRN Reason: Pain [place](Unk) 2 tab PO DAILY Discharge Medication List HYDROcodone/APAP 7.5-325MG [[place] 7.5-325] 1 tab PO Q4H PRN 01/17/23 [History] [place](Unk) 2 tab PO DAILY 03/15/23 [History] Levofloxacin [Levaquin] 500 mg PO DAILY 7 Days #7 tab 03/25/23 [Rx] metroNIDAZOLE [Flagyl] 500 mg PO TID 7 Days #21 tab 03/25/23 [Rx] Follow up Appointment(s)/Referral(s): [facility], [NON-STAFF] - As Needed Jordan Penny MD [STAFF PHYSICIAN] - 1 Week Activity/Diet/Wound Care/Special Instructions: VERY EXPENSIVE HOME MEDICATION IN MED BIN!!!! Please send patient home with a few days supplies for his ostomy No driving while taking [place] No lifting over 10 pounds Shower daily. No soaking or tub baths for 2 weeks Very light activity until you are reevaluated at your follow up appointment with your surgeon Discharge Disposition: HOME SELF-CARE
--- NOTE | 2023-03-25 13:43 | PN ---
PROGRESS NOTE DATE OF SERVICE: 03/25/2023 SUBJECTIVE: This is a 73-year-old gentleman, who was admitted after diverting colostomy, also complaining of severe left knee pain. No chest pain. No palpitations. No fever. PHYSICAL EXAMINATION: VITAL SIGNS: Pulse is 76, blood pressure 115/70, respirations 16. CHEST: Clear to auscultation. CARDIOVASCULAR: S1 and S2. ABDOMEN: Soft. Status post surgery. LEGS: Left knee pain and swelling present. LABORATORY DATA: Reviewed. ASSESSMENT: 1. Status post diverting colostomy, colovesical fistula. 2. Severe left knee joint pain with severe degenerative joint disease. 3. 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 4. Increased WBC. 5. History of pulmonary embolism. 6. History of iron deficiency anemia .. 7. History of nicotine dependence. 8. Mild protein-calorie malnutrition. RECOMMENDATIONS: Recommend to continue current medications. Continue symptomatic treatment. Otherwise, follow up labs with the primary physician. Orthopedic Surgery evaluation as an outpatient. Further recommendations to follow. MMODL / IJN: [id number] /
== END 2023-03-25 15:11 | disposition home or self-care (01) | DRG 982 ==
LOC: 2ORMAIN 03-18 11:03 → 4SSUR 03-18 15:39
PROVIDERS: ADMIT Surgery; ATTEND Surgery
PROC: 0DBM0ZZ Excision of Descending Colon, Open Approach (ICD-10-PCS; 2023-03-18)
PROC: 30233N1 Transfusion of Nonautologous Red Blood Cells into Peripheral Vein, Percutaneous Approach (ICD-10-PCS; 2023-03-18)
PROC: 0D1M074 Bypass Descending Colon to Cutaneous with Autologous Tissue Substitute, Open Approach (ICD-10-PCS; principal; 2023-03-18 12:50)
DX: N32.1 Vesicointestinal fistula (principal); E44.1 Mild protein-calorie malnutrition; Z68.1 Body mass index [BMI] 19.9 or less, adult; D63.0 Anemia in neoplastic disease; D50.9 Iron deficiency anemia, unspecified; Z87.891 Personal history of nicotine dependence; M17.12 Unilateral primary osteoarthritis, left knee; I95.9 Hypotension, unspecified; D72.829 Elevated white blood cell count, unspecified; L29.9 Pruritus, unspecified; M19.90 Unspecified osteoarthritis, unspecified site; Z85.51 Personal history of malignant neoplasm of bladder; Z86.711 Personal history of pulmonary embolism
CPT/HCPCS: 80048; 80053; 81001; 82533; 84550; 85025; 85610; 85730; 86850; 86900; 86901; 86920; 94760

== ENCOUNTER 2023-06-01 02:00 | Inpatient (IN) | payer MEDICARE ==
[2023-06-01] MEDS ORDERED: ONDANSETRON 4 MG/2 ML VIAL IVP STA ×2 (02:08→03:45)
[2023-06-01] MEDS ORDERED: SODIUM CHLORIDE 0.9% 1,000 ML IV STA (02:08)
--- NOTE | 2023-06-01 02:23 | ED ---
General Adult HPI - General Chief complaint: Weakness Stated complaint: Low bp Time Seen by Provider: 06/01/23 02:06 Source: patient, family, EMS, RN notes reviewed, old records reviewed Mode of arrival: EMS Limitations: no limitations - History of Present Illness Initial comments: 73-year-old male with history of bladder cancer status post tumor resection and subsequent colostomy and urostomy presenting with vomiting and abdominal pain. Patient is not currently on chemotherapy and is scheduled to follow-up with oncology in 2 days regarding treatment status. He is also scheduled for PEG tube due to poor intake. No reported fever. Patient reports generalized abdominal pain and multiple episodes of vomiting. According to family has had a very poor intake over the past several weeks. - Related Data Home Medications Medication Instructions Recorded Confirmed HYDROcodone/APAP 7.5-325MG [[place] 1 tab PO Q4H PRN 01/17/23 05/31/23 7.5-325] Allergies Allergy/AdvReac Type Severity Reaction Status Date / Time No Known Allergies Allergy Verified 06/01/23 02:06 Review of Systems ROS Statement: Those systems with pertinent positive or pertinent negative responses have been documented in the HPI. ROS Other: All systems not noted in ROS Statement are negative. Past Medical History Past Medical History: Cancer, Pulmonary Embolus (PE) Additional Past Medical History / Comment(s): BLADDER CANCER, that moved colon loosing weight and unable to swallow. lost 50pounds since july History of Any Multi-Drug Resistant Organisms: None Reported Past Surgical History: Bladder Surgery, Bowel Resection, Orthopedic Surgery, Tonsillectomy Additional Past Surgical History / Comment(s): Left knee surgery,MASS REMOVED FROM BLADDER 01/2022, 07/2022-bladder removed/urostomy, colostomy egd and colonoscopy Past Anesthesia/Blood Transfusion Reactions: No Reported Reaction Additional Past Anesthesia/Blood Transfusion Reaction / Comment(s): no blood transfusion reaction Past Psychological History: No Psychological Hx Reported Smoking Status: Current every day smoker Past Alcohol Use History: None Reported Past Drug Use History: None Reported - Past Family History Father Family Medical History: Cancer Additional Family Medical History / Comment(s): liver General Exam General appearance: alert, in distress, cachectic Head exam: Present: atraumatic, normocephalic Eye exam: Present: normal appearance, PERRL ENT exam: Present: mucous membranes dry Neck exam: Present: normal inspection. Absent: tenderness, meningismus Respiratory exam: Present: respiratory distress. Absent: wheezes, rales Cardiovascular Exam: Present: normal rhythm, tachycardia GI/Abdominal exam: Present: tenderness. Absent: distended Extremities exam: Present: normal inspection, normal capillary refill Psychiatric exam: Present: anxious Skin exam: Present: cyanosis, pallor Course Vital Signs 06/01/23 06/01/23 06/01/23 02:02 02:06 02:30 Temperature 97.9 F Pulse Rate 81 151 H Respiratory 24 24 26 H Rate Blood Pressure 75/51 100/64 O2 Sat by Pulse 94 L 84 L Oximetry 06/01/23 06/01/23 06/01/23 02:40 02:50 03:00 Temperature Pulse Rate 133 H 133 H 128 H Respiratory 24 25 H 24 Rate Blood Pressure 87/33 87/61 97/58 O2 Sat by Pulse 91 L 92 L Oximetry 06/01/23 06/01/23 04:00 05:00 Temperature Pulse Rate 129 H 124 H Respiratory 26 H 25 H Rate Blood Pressure 84/52 78/52 O2 Sat by Pulse 91 L 93 L Oximetry Medical Decision Making - Medical Decision Making Was pt. sent in by a medical professional or institution (, PA, VARNISHING UNIT OPERATOR, urgent care, hospital, or retirement...) When possible be specific @ -No Did you speak to anyone other than the patient for history (EMS, parent, family, police, friend...)? What history was obtained from this source @ -Patient's daughter, patient's son, patient's Did you review nursing and triage notes (agree or disagree)? Why? @ -I reviewed and agree with nursing and triage notes Were old charts reviewed (outside hosp., previous admission, EMS record, old EKG, old radiological studies, urgent care reports/EKG's, retirement records)? Report findings @ -No old charts were reviewed Differential Diagnosis (chest pain, altered mental status, abdominal pain women, abdominal pain men, vaginal bleeding, weakness, fever, dyspnea, syncope, headache, dizziness, GI bleed, back pain, seizure, CVA, palpatations, mental health, musculoskeletal)? @ -[Differential Abdominal Pain Men: Appendicitis, cholecystitis, diverticulosis, ischemic bowel, pancreatitis, hepatitis, UTI, gastroenteritis, AAA, incarcerated hernia, bowel obstruction, constipation, inflammatory bowel, hepatitis, peptic ulcer disease, splenic infarction, perforated viscus, testicular torsion, this is not meant to be an all-inclusive list EKG interpreted by me (3pts min.). @ -Sinus tachycardia rate of 158, AL interval 98, QRS duration 89, possible atrial flutter with 2 1 conduction. X-rays interpreted by me (1pt min.). @ -[None done CT interpreted by me (1pt min.). @CT abdomen pelvis with IV contrast showing portal venous gas, concern for ischemic stomach and ischemic small bowel. U/S interpreted by me (1pt. min.). @ -None done What testing was considered but not performed or refused? (CT, X-rays, U/S, labs)? Why? @ -None What meds were considered but not given or refused? Why? @ -None Did you discuss the management of the patient with other professionals (professionals i.e. DrHolger, PA, VARNISHING UNIT OPERATOR, lab, RT, psych nurse, clinical social work therapist, lawyer criminal, teacher, sheriff officer, watch case polisher)? Give summary @ -Dr. Ribera, Dr. Plasencia Was smoking cessation discussed for >3mins.? @ -No Was critical care preformed (if so, how long)? @ -No Were there social determinants of health that impacted care today? How? (Homelessness, low income, unemployed, alcoholism, drug addiction, transportation, low edu. Level, literacy, decrease access to med. care, [facility], rehab)? @ -No Was there de-escalation of care discussed even if they declined (Discuss DNR or withdrawal of care, Hospice)? DNR status @ -DNR What co-morbidities impacted this encounter? (DM, HTN, Smoking, COPD, CAD, Cancer, CVA, ARF, Chemo, Hep., AIDS, mental health diagnosis, sleep apnea, morbid obesity)? @ -[Bladder cancer, multiple abdominal surgeries Was patient admitted / discharged? Hospital course, mention meds given and route, prescriptions, significant lab abnormalities, going to OR and other pertinent info. @ -73-year-old male presenting in extremis, tachycardic and hypotensive. Patient is pale and appears cyanotic upon arrival. He is cachectic he has had significant weight loss. He has not been eating well. Patient has abdominal tenderness without significant distention. CT shows significant abnormalities and laboratory testing is quite poor including leukocytosis and high lactic aci d. Patient received resuscitative efforts including IV fluids, IV antibiotics were initiated early. NG tube was placed in the emergency department. I discussed case at length with Dr. Plasencia covering for general surgery. Mouthcard that the overall prognosis for this patient is poor and that he would not tolerate surgery. Family is informed of this and is agreeable with medical measures including antibiotics, fluids, NG tube and pain control without surgery, without resuscitation. Patient is made DNR but will continue with these measures at this time. Admitted to internal medicine with surgery on consult. Undiagnosed new problem with uncertain prognosis? @ -No Drug Therapy requiring intensive monitoring for toxicity (Heparin, Nitro, Insulin, Cardizem)? @ -No Were any procedures done? @ -No Diagnosis/symptom? @ -Ischemic bowel, portal venous gas, sepsis Acute, or Chronic, or Acute on Chronic? @Acute Uncomplicated (without systemic symptoms) or Complicated (systemic symptoms)? @ -Default Side effects of treatment? @ -No Exacerbation, Progression, or Severe Exacerbation? @ -No Poses a threat to life or bodily function? How? (Chest pain, USA, CT, pneumonia, PE, COPD, DKA, ARF, appy, cholecystitis, CVA, Diverticulitis, Homicidal, Suicidal, threat to staff... and all critical care pts) @ -poor prognosis - Lab Data Result diagrams: 06/01/23 02:19 06/01/23 02:19 Lab Results 06/01/23 06/01/23 06/01/23 Range/Units 02:19 02:19 02:19 WBC 18.1 H (3.8-10.6) k/uL RBC 3.92 L (4.30-5.90) m/uL Hgb 11.7 L (13.0-17.5) gm/dL Hct 36.8 L (39.0-53.0) % MCV 93.9 (80.0-100.0) fL MCH 29.8 (25.0-35.0) pg MCHC 31.8 (31.0-37.0) g/dL RDW 16.1 H (11.5-15.5) % Plt Count 729 H (150-450) k/uL MPV 7.5 Neutrophils % 94 % Lymphocytes % 3 % Monocytes % 2 % Eosinophils % 0 % Basophils % 0 % Neutrophils # 17.0 H (1.3-7.7) k/uL Lymphocytes # 0.6 L (1.0-4.8) k/uL Monocytes # 0.4 (0-1.0) k/uL Eosinophils # 0.0 (0-0.7) k/uL Basophils # 0.0 (0-0.2) k/uL Hypochromasia Slight Anisocytosis Slight PT 11.2 (10.0-12.5) sec INR 1.0 (<1.2) APTT 24.0 (22.0-30.0) sec Sodium (137-145) mmol/L Potassium (3.5-5.1) mmol/L Chloride (98-107) mmol/L Carbon Dioxide (22-30) mmol/L Anion Gap mmol/L BUN (9-20) mg/dL Creatinine (0.66-1.25) mg/dL Est GFR (CKD-EPI)AfAm (>60 ml/min/1.73 sqM) Est GFR (CKD-EPI)NonAf (>60 ml/min/1.73 sqM) Glucose (74-99) mg/dL Lactic Ac Sepsis Rflx Plasma Lactic Acid José (0.7-2.0) mmol/L Calcium (8.4-10.2) mg/dL Total Bilirubin (0.2-1.3) mg/dL AST (17-59) U/L ALT (4-49) U/L Alkaline Phosphatase (38-126) U/L Total Protein (6.3-8.2) g/dL Albumin (3.5-5.0) g/dL Amylase (30-110) U/L Lipase (23-300) U/L Urine Color Yellow Urine Appearance Turbid (Clear) Urine pH 6.0 (5.0-8.0) Ur Specific [place] 1.045 H (1.001-1.035) Urine Protein 1+ H (Negative) Urine Glucose (UA) Negative (Negative) Urine Ketones Negative (Negative) Urine Blood Trace H (Negative) Urine Nitrite Negative (Negative) Urine Bilirubin Negative (Negative) Urine Urobilinogen <2.0 (<2.0) mg/dL Ur Leukocyte Esterase Negative (Negative) Urine RBC 6 H (0-5) /hpf Urine WBC 9 H (0-5) /hpf Ur Squamous Epith Cells 2 (0-4) /hpf Urine Bacteria Few H (None) /hpf Urine Mucus Many H (None) /hpf 06/01/23 06/01/23 06/01/23 Range/Units 02:19 02:19 03:34 WBC (3.8-10.6) k/uL RBC (4.30-5.90) m/uL Hgb (13.0-17.5) gm/dL Hct (39.0-53.0) % MCV (80.0-100.0) fL MCH (25.0-35.0) pg MCHC (31.0-37.0) g/dL RDW (11.5-15.5) % Plt Count (150-450) k/uL MPV Neutrophils % % Lymphocytes % % Monocytes % % Eosinophils % % Basophils % % Neutrophils # (1.3-7.7) k/uL Lymphocytes # (1.0-4.8) k/uL Monocytes # (0-1.0) k/uL Eosinophils # (0-0.7) k/uL Basophils # (0-0.2) k/uL Hypochromasia Anisocytosis PT (10.0-12.5) sec INR (<1.2) APTT (22.0-30.0) sec Sodium 133 L (137-145) mmol/L Potassium 4.0 (3.5-5.1) mmol/L Chloride 105 (98-107) mmol/L Carbon Dioxide 18 L (22-30) mmol/L Anion Gap 10 mmol/L BUN 36 H (9-20) mg/dL Creatinine 0.79 (0.66-1.25) mg/dL Est GFR (CKD-EPI)AfAm >90 (>60 ml/min/1.73 sqM) Est GFR (CKD-EPI)NonAf 89 (>60 ml/min/1.73 sqM) Glucose 170 H (74-99) mg/dL Lactic Ac Sepsis Rflx Y Plasma Lactic Acid José 7.5 H* (0.7-2.0) mmol/L Calcium 11.8 H (8.4-10.2) mg/dL Total Bilirubin 0.9 (0.2-1.3) mg/dL AST 34 (17-59) U/L ALT 41 (4-49) U/L Alkaline Phosphatase 785 H (38-126) U/L Total Protein 7.0 (6.3-8.2) g/dL Albumin 3.4 L (3.5-5.0) g/dL Amylase 44 (30-110) U/L Lipase 37 (23-300) U/L Urine Color Urine Appearance (Clear) Urine pH (5.0-8.0) Ur Specific [place] (1.001-1.035) Urine Protein (Negative) Urine Glucose (UA) (Negative) Urine Ketones (Negative) Urine Blood (Negative) Urine Nitrite (Negative) Urine Bilirubin (Negative) Urine Urobilinogen (<2.0) mg/dL Ur Leukocyte Esterase (Negative) Urine RBC (0-5) /hpf Urine WBC (0-5) /hpf Ur Squamous Epith Cells (0-4) /hpf Urine Bacteria (None) /hpf Urine Mucus (None) /hpf Disposition Clinical Impression: Sepsis, Ischemic bowel disease Disposition: ADMITTED IP TO THIS [facility] Condition: Serious Is patient prescribed a controlled substance at d/c from ED?: No Time of Disposition: 06:26
[2023-06-01 02:47] LABS: Prothrombin Time 11.2 sec (10.0-12.5)
[2023-06-01 02:48] LABS: ALT 41 U/L (4-49); AST 34 U/L (17-59); African American GFR (CKD) >90 (>60 ml/min/1.73 sqM); Albumin 3.4 g/dL (3.5-5.0); Amylase 44 U/L (30-110); Anion Gap 10 mmol/L; Blood Urea Nitrogen 36 mg/dL (9-20); Calcium 11.8 mg/dL (8.4-10.2); Carbon Dioxide 18 mmol/L (22-30); Chloride 105 mmol/L (98-107); Glucose 170 mg/dL (74-99); Lipase 37 U/L (23-300); Non-African American GFR(CKD) 89 (>60 ml/min/1.73 sqM); Sodium 133 mmol/L (137-145); Total Bilirubin 0.9 mg/dL (0.2-1.3)
[2023-06-01 02:51] LABS: Anisocytosis Slight; Basophils % (A) 0 %; Eosinophils % (A) 0 %; HCT 36.8 % (39.0-53.0); HGB 11.7 gm/dL (13.0-17.5); Hypochromasia Slight; Lymphocytes # (A) 0.6 k/uL (1.0-4.8); Lymphocytes % (A) 3 %; MCH 29.8 pg (25.0-35.0); MCHC 31.8 g/dL (31.0-37.0); MCV 93.9 fL (80.0-100.0); Mean Platelet Volume 7.5; Monocytes # (A) 0.4 k/uL (0-1.0); Monocytes % (A) 2 %; Neutrophils % (A) 94 %; Platelet Count 729 k/uL (150-450); RBC 3.92 m/uL (4.30-5.90); RDW 16.1 % (11.5-15.5); WBC 18.1 k/uL (3.8-10.6)
[2023-06-01] MEDS ORDERED: SODIUM CHLORIDE 0.9% 500 ML 500 ML IV ONE (02:51)
[2023-06-01 02:54] LABS: Alkaline Phosphatase 785 U/L (38-126)
[2023-06-01] MEDS: SODIUM CHLORIDE 0.9% 1,000 ML IV SCH ×3 (03:08→17:07)
--- NOTE | 2023-06-01 03:38 | CT ---
EXAM: CT Abdomen and Pelvis With Intravenous Contrast CLINICAL HISTORY: abdominal pain TECHNIQUE: Axial computed tomography images of the abdomen and pelvis with intravenous contrast. CTDI is 14.13 mGy and DLP is 634.8 mGy-cm. This CT exam was performed using one or more of the following dose reduction techniques: automated exposure control, adjustment of the mA and/or kV according to patient size, and/or use of iterative reconstruction technique. COMPARISON: CT abdomen and pelvis dated 02/14/2023 FINDINGS: Lung bases: Patchy opacities throughout the lung bases. The primary consideration is multifocal diffuse pneumonia. ABDOMEN: Liver: There is extensive portal venous gas in the throughout the intrahepatic portal venous system and involving the left main and right main pulmonary artery. Gallbladder and bile ducts: Unremarkable. No calcified stones. No ductal dilation. Pancreas: Grossly unremarkable. No mass. No ductal dilation. Spleen: Unremarkable. No splenomegaly. Adrenals: Unremarkable. No mass. Kidneys and ureters: Unremarkable. No solid mass. No hydronephrosis. Stomach and bowel: There is a suggestion of nondependent gas along the wall of the stomach diffusely. There is also gas in the perigastric vasculature. The diverting colostomy in the left lower quadrant is new from the previous examination. Diffuse small bowel mucosal thickening with fluid and gas distention throughout the abdomen and pelvis. No definite small bowel pneumatosis. A right lower quadrant ileostomy is stable from the previous exam. PELVIS: Appendix: Not definitively identified. Bladder: The bladder is abnormal in appearance with thickening and nondependent fluid and gas. 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 Reproductive: Unremarkable as visualized. ABDOMEN and PELVIS: Intraperitoneal space: No obvious pneumoperitoneum. No significant fluid collection. Bones/joints: No acute fracture. No dislocation. Soft tissues: Unremarkable. Vasculature: The aorta is calcified but normal in caliber. The celiac artery and superior mesenteric artery are patent, as is the proximal CHRIS. Lymph nodes: Unremarkable. No enlarged lymph nodes. IMPRESSION: 1. There is extensive portal venous gas in the throughout the intrahepatic portal venous system and involving the left main and right main pulmonary artery. 2. There is a suggestion of nondependent gas along the wall of the stomach diffusely. There is also gas in the perigastric vasculature. Findings are concerning for ischemia of the stomach. No other definite evidence for small bowel pneumatosis definitively identified. Emergent surgical consultation recommended. 3. Diffuse small bowel mucosal thickening with fluid and gas distention throughout the abdomen and pelvis. Findings are concerning for enteritis. 4. The bladder is abnormal in appearance with thickening and nondependent fluid and gas. 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 <MYCVCSECTION> Communications: 06/01/23 03:40 Call Doctor Regarding Ischemic bowel/portal venous air, called Dr. Petit on 06/01 03:41 (-05:00)
[2023-06-01] MEDS ORDERED: PIPERACILLIN-TAZOBACTAM 3.375 GM in SODIUM CHLORIDE 0.9% 100 ML IVPB STA (03:39)
[2023-06-01 04:08] LABS: Appearance,Urine Turbid (Clear); Bacteria,Urine Few /hpf; Bilirubin,Urine Negative (Negative); Blood,Urine Trace (Negative); Color,Urine Yellow; Glucose,Urine (UA) Negative (Negative); Ketones,Urine Negative (Negative); Leukocyte Esterase,Urine Negative (Negative); Mucus,Urine Many /hpf; Nitrite,Urine Negative (Negative); Protein,Urine 1+ (Negative); RBC,Urine 6 /hpf (0-5); Specific Gravity,Urine 1.045 (1.001-1.035); Squamous Epithelial Cell,Urine 2 /hpf (0-4); Urobilinogen,Urine <2.0 mg/dL (<2.0); WBC,Urine 9 /hpf (0-5)
[2023-06-01] MEDS ORDERED: NALOXONE 0.4 MG/ML 1 ML VIAL IV PRN (05:05)
--- NOTE | 2023-06-01 06:29 | P.HPIM ---
History of Present Illness H&P Date: 06/01/23 Chief Complaint: Repeated vomiting abdominal pain 73-year-old male with metastatic bladder cancer status post tumor resection and subsequent colostomy and urostomy coming in with repeated vomiting nonbloody nonbilious and abdominal pain patient was supposed to start chemotherapy in 2 days and getting a PEG tube due to poor p.o. intake however due to repeated vomiting he was brought into the hospital for evaluation Patient is providing very limited history as he seems to be exhausted. History was obtained by family member at bedside patient himself denies any fevers or chills denies any chest pain or trouble breathing no reports of falling or head injuries. Patient claims that his ostomy bags are both functional without any bleeding Family indicates that the patient has been progressively getting worse over the past couple weeks with very poor p.o. intake. They noted that patient wishes are to be DNR Upon further evaluation in the ED and findings on imaging which showed that CAT scan of the abdomen revealed portal venous gas and possible stomach ischemia and enteritis after further discussion between the ED doctor and the family family indicated no surgical options no heroic measures agreed to make the patient DNR and was hoping for only medical management at this time with possibility of converting into complete comfort care measures if patient showing no signs of improvement review of systems Pertinent positives as noted in HPI. All other systems were reviewed and are negative on exam Constitutional: No acute distress, cachectic Eyes: Anicteric sclerae, moist conjunctiva, Pupils equal round reactive to light ENMT: NC/AT Oropharynx clear, no erythema, or exudates Neck: Supple, no masses, or JVD No carotid bruits No thyromegaly Lungs: Clear to auscultation Clear to percussion Normal respiratory effort, no accessory muscle use Cardiovascular: Heart regular in rate and rhythm, No murmurs, gallops, or rubs No peripheral edema Abdominal: Soft Nontender, no guarding, rebound or rigidity Abdomen moving with respiration Colostomy and urostomy bag in place urostomy with urine colostomy bag is empty Extremities: No digital cyanosis No clubbing Pedal pulses intact and symmetrical Radial pulses intact and symmetrical No calf tenderness Psychiatric: Alert and oriented to perso Neuro unable to perform patient cannot participate in exam Past Medical History Past Medical History: Cancer, Pulmonary Embolus (PE) Additional Past Medical History / Comment(s): BLADDER CANCER, that moved colon loosing weight and unable to swallow. lost 50pounds since july History of Any Multi-Drug Resistant Organisms: None Reported Past Surgical History: Bladder Surgery, Bowel Resection, Orthopedic Surgery, Tonsillectomy Additional Past Surgical History / Comment(s): Left knee surgery,MASS REMOVED FROM BLADDER 01/2022, 07/2022-bladder removed/urostomy, colostomy egd and colonoscopy Past Anesthesia/Blood Transfusion Reactions: No Reported Reaction Additional Past Anesthesia/Blood Transfusion Reaction / Comment(s): no blood transfusion reaction Past Psychological History: No Psychological Hx Reported Smoking Status: Current every day smoker Past Alcohol Use History: None Reported Past Drug Use History: None Reported - Past Family History Father Family Medical History: Cancer Additional Family Medical History / Comment(s): liver Medications and Allergies Home Medications Medication Instructions Recorded Confirmed Type HYDROcodone/APAP 7.5-325MG [[place] 1 tab PO Q4H PRN 01/17/23 05/31/23 History 7.5-325] Allergies Allergy/AdvReac Type Severity Reaction Status Date / Time No Known Allergies Allergy Verified 06/01/23 02:06 Physical Exam Vitals: Vital Signs Temp Pulse Resp BP Pulse Ox 06/01/23 05:00 124 H 25 H 78/52 93 L 06/01/23 04:00 129 H 26 H 84/52 91 L 06/01/23 03:00 128 H 24 97/58 92 L 06/01/23 02:50 133 H 25 H 87/61 91 L 06/01/23 02:40 133 H 24 87/33 06/01/23 02:30 151 H 26 H 100/64 84 L 06/01/23 02:06 24 06/01/23 02:02 97.9 F 81 24 75/51 94 L Intake and Output 05/31/23 05/31/23 06/01/23 14:59 22:59 06:59 Other: Weight 47.174 kg Results CBC & Chem 7: 06/01/23 02:19 06/01/23 02:19 Labs: Abnormal Lab Results - Last 24 Hours (Table) 06/01/23 06/01/23 06/01/23 Range/Units 02:19 02:19 02:19 WBC 18.1 H (3.8-10.6) k/uL RBC 3.92 L (4.30-5.90) m/uL Hgb 11.7 L (13.0-17.5) gm/dL Hct 36.8 L (39.0-53.0) % RDW 16.1 H (11.5-15.5) % Plt Count 729 H (150-450) k/uL Neutrophils # 17.0 H (1.3-7.7) k/uL Lymphocytes # 0.6 L (1.0-4.8) k/uL Sodium 133 L (137-145) mmol/L Carbon Dioxide 18 L (22-30) mmol/L BUN 36 H (9-20) mg/dL Glucose 170 H (74-99) mg/dL Plasma Lactic Acid José (0.7-2.0) mmol/L Calcium 11.8 H (8.4-10.2) mg/dL Alkaline Phosphatase 785 H (38-126) U/L Albumin 3.4 L (3.5-5.0) g/dL Ur Specific [place] 1.045 H (1.001-1.035) Urine Protein 1+ H (Negative) Urine Blood Trace H (Negative) Urine RBC 6 H (0-5) /hpf Urine WBC 9 H (0-5) /hpf Urine Bacteria Few H (None) /hpf Urine Mucus Many H (None) /hpf 06/01/23 Range/Units 02:19 WBC (3.8-10.6) k/uL RBC (4.30-5.90) m/uL Hgb (13.0-17.5) gm/dL Hct (39.0-53.0) % RDW (11.5-15.5) % Plt Count (150-450) k/uL Neutrophils # (1.3-7.7) k/uL Lymphocytes # (1.0-4.8) k/uL Sodium (137-145) mmol/L Carbon Dioxide (22-30) mmol/L BUN (9-20) mg/dL Glucose (74-99) mg/dL Plasma Lactic Acid José 7.5 H* (0.7-2.0) mmol/L Calcium (8.4-10.2) mg/dL Alkaline Phosphatase (38-126) U/L Albumin (3.5-5.0) g/dL Ur Specific [place] (1.001-1.035) Urine Protein (Negative) Urine Blood (Negative) Urine RBC (0-5) /hpf Urine WBC (0-5) /hpf Urine Bacteria (None) /hpf Urine Mucus (None) /hpf Assessment and Plan Assessment: 73-year-old male with metastatic bladder cancer status post colostomy and urostomy coming in due to repeated vomiting and abdominal pain I discussed case with ED doctor and accepted the admission for medical management of portal venous gas possible stomach ischemia and enteritis patient is a poor surgical candidate and family elected for medical management with possibility of switching to comfort care if patient does not show any signs of improvement with anticipated length of stay more than 2 midnights Metastatic bladder cancer Sepsis secondary to suspected intra-abdominal source Portal venous gas with possible stomach ischemia and enteritis Poor surgical candidate Follow-up general surgery recommendations Follow-up blood cultures Empiric antibiotics with Zosyn 3.75 g every 8 hours Pain control with opiates IV Dilaudid IV fluid hydration normal saline 130 cc/h Lactic acidosis 7.5 CT of the abdomen was not significant finding of portal venous gas, concerns for stomach ischemia and enteritis White count 18.1 Hemoglobin 11.7 with chronic anemia Hypercalcemia is 11.8 most likely secondary to underlying metastatic cancer Continue with natriuresis with normal saline at 130 cc/h Monitor urine output Dehydration Renal function showing BUN 36 creatinine 0.7 Sodium 133 potassium 4 unremarkable No code DVT prophylaxis mechanical
[2023-06-01] MEDS ORDERED: SODIUM CHLORIDE 0.9% 1,000 ML IV ONE (12:30)
[2023-06-01] MEDS: PIPERACILLIN-TAZOBACTAM 3.375 GM in SODIUM CHLORIDE 0.9% 100 ML IVPB SCH ×2 (13:34→21:46)
[2023-06-01] MEDS ORDERED: ONDANSETRON 4 MG/2 ML VIAL IVP PRN (18:59)
[2023-06-02] MEDS: SODIUM CHLORIDE 0.9% 1,000 ML IV SCH ×5 (01:26→23:22)
[2023-06-02] MEDS: PIPERACILLIN-TAZOBACTAM 3.375 GM in SODIUM CHLORIDE 0.9% 100 ML IVPB SCH ×3 (04:32→20:23)
--- NOTE | 2023-06-02 08:33 | XR ---
EXAMINATION TYPE: XR KUB portable DATE OF EXAM: 06/02/2023 COMPARISON: None INDICATION: Tube placement weakness and pain TECHNIQUE: Supine view FINDINGS: Nonspecific bowel gas is present. Nasogastric tube is present with tip in the left upper quadrant of the abdomen. Psoas margins faintly visualized are normal. No organomegaly is present. IMPRESSION: 1. Nasogastric tube tip left upper quadrant abdomen. 2 nonspecific abdomen
--- NOTE | 2023-06-02 10:29 | P.GSCN ---
History of Present Illness Consult date: 06/02/23 Reason for Consult: Abdominal pain History of present illness: 73-year-old male presents to the ER 2 nights ago with abdominal pain. Says it w as mostly left-sided. Patient came to the hospital somewhat confused however. 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 I spoke to the ER staff around 4 in the morning yesterday. CAT scan showed impressive amount of portal venous gas and possible gastric pneumatosis with gastric distention. Patient's pelvic malignancy somewhat advanced since previous studies. Etiology for portal venous gas thought to be related to stomach however etiology not clear. Discussions with the family after I spoke to the ER staff led to the decision to not proceed with any surgical intervention but to instead aim for supportive care and gastric decompression. Patient was initially scheduled for outpatient PEG tube placem ent this week. 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 It appears that he was not seen by locum surgeon yesterday. I did notify the surgeon of the consult but he may have misunderstood that he did not need to see the patient since no surgery was planned. Patient seems to be doing better today. He is more alert. Still having mild intermittent left- sided pain. Gastric tube was apparently not working well yesterday evening and the nursing staff noticed that the suction was less than expected. When they improved the gastric suction 1.4 L of fluid he pulled the nasogastric tube out overnight. It was replaced this morning. Abdominal x-ray showed nonspecific abdomen. Review of Systems The patient denies any acute changes in vision or hearing, no dysphagia or odynophagia, no chest pain or shortness of breath, no headache, no runny nose, no rectal bleeding or melena, no unexplained weight loss Past Medical History Past Medical History: Cancer, Pulmonary Embolus (PE) Additional Past Medical History / Comment(s): BLADDER CANCER, mets to colon, stomach, lost weight and unable to swallow. lost 50pounds since july History of Any Multi-Drug Resistant Organisms: None Reported Past Surgical History: Bladder Surgery, Bowel Resection, Orthopedic Surgery, Tonsillectomy Additional Past Surgical History / Comment(s): Left knee surgery,MASS REMOVED FROM BLADDER 01/2022, 07/2022-bladder removed/urostomy, colostomy, egd and colonoscopy Past Anesthesia/Blood Transfusion Reactions: No Reported Reaction Additional Past Anesthesia/Blood Transfusion Reaction / Comm: no blood transfusion reaction Smoking Status: Current every day smoker - Past Family History Father Family Medical History: Cancer Additional Family Medical History / Comment(s): liver Medications and Allergies Home Medications Medication Instructions Recorded Confirmed Type HYDROcodone/APAP 10-325MG [[place] 1 tab PO Q6H 06/01/23 06/01/23 History 10-325] Allergies Allergy/AdvReac Type Severity Reaction Status Date / Time No Known Allergies Allergy Verified 06/01/23 12:20 Surgical - Exam Vital Signs Temp Pulse Resp BP Pulse Ox 97.9 F 81 24 75/51 94 L 06/01/23 02:02 06/01/23 02:02 06/01/23 02:02 06/01/23 02:02 06/01/23 02:02 Physical exam: General: Nourished elderly male in no distress HEENT: Normocephalic, sclerae nonicteric Abdomen: Nondistended, both ostomies pink, both ostomy is functioning, mild left-sided tenderness Extremities: No edema Neuro: Alert and oriented Results - Labs 06/01/23 02:19 06/01/23 02:19 Abnormal Lab Results - Last 24 Hours (Table) 06/01/23 06/01/23 06/01/23 Range/Units 11:17 14:15 18:01 Plasma Lactic Acid José 3.4 H* 2.8 H* 2.8 H* (0.7-2.0) mmol/L 06/01/23 06/02/23 06/02/23 Range/Units 21:43 00:28 03:39 Plasma Lactic Acid José 2.5 H* 2.5 H* 3.3 H* (0.7-2.0) mmol/L 06/02/23 Range/Units 06:57 Plasma Lactic Acid José 2.3 H* (0.7-2.0) mmol/L Assessment and Plan (1) Ischemic bowel disease Narrative/Plan: 73-year-old male with advanced malignancy. Presents with possible gastric ischemia and portal venous gas. Decision by family and patient for supportive care only. Seems to be doing better. Continue antibiotics. Continue gastric decompression. Discussions with family regarding possible PEG tube placement will have to take place this week. Will reevaluate tomorrow. Will notify Dr. Penny. Current Visit: Yes Status: Acute Code(s): K55.9 - VASCULAR DISORDER OF INTESTINE, UNSPECIFIED SNOMED Code(s): 38530595
--- NOTE | 2023-06-02 11:32 | P.PN ---
Subjective Progress Note Date: 06/02/23 Hospital Course: 73-year-old male with metastatic bladder cancer status post tumor resection and subsequent colostomy and urostomy coming in with repeated vomiting nonbloody nonbilious and abdominal pain patient was supposed to start chemotherapy in 2 days and getting a PEG tube due to poor p.o. intake however due to repeated vomiting he was brought into the hospital for evaluation. On initial present ation, patient was tachycardic hypotensive. Laboratory analysis showed a WBC of 18.1, platelet 729, creatinine 0.79, lactate 7.5, bicarb 18, ALP 785. CT abdomen pelvis showed extensive portal venous gas throughout the intrahepatic portal venous system and involving the left main and right main pulmonary artery, suggestion of nondependent gas along the wall of stomach diffusely, gas in the perigastric vasculature, concerning for ischemia of the stomach, diffuse small bowel mucosal thickening with fluid and gas distention, concerning for enteritis, bladder showed abnormal appearance with thickening and nondependent fluid and gas, persistent fistulous communication with the distal rectosigmoid colon at the dome of the bladder. Patient admitted for severe sepsis. Family does not want to escalate care. There was no desire from patient or family to be transferred to a higher level of care. General surgery consulted. Subjective: Patient seen and examined at bedside. Has been having further vomiting despite having an NG tube in place. Apparently, NG tube was not functioning well, and new NG tube placed, 1400 cc of fluid came out. Pertinent positives and negatives as discussed above, a complete review of systems was performed and all other systems are negative. Vitals Signs Reviewed. General: Nontoxic, no distress, appears older than at stated age, appears cachectic Derm: Warm, dry Head: Atraumatic, normocephalic, symmetric Eyes: EOMI, no lid lag, anicteric sclera Mouth: No lip lesion, mucus membranes moist Cardiovascular: S1S2 reg, no murmur Lungs: Bibasilar rales, no accessory muscle use, supplemental oxygen Abdominal: Soft, diffusely tender to palpation, no guarding, no appreciable organomegaly Ext: No gross muscle atrophy, no edema, no contractures Neuro: CN II-XI grossly intact, no focal neuro deficits Psych: Alert, oriented, appropriate affect Data Reviewed Today: Pertinent Labs: Lactate down trended to 2.3, CBC and CMP still pending, will be reviewed when available Imaging: KUB independently interpreted from this morning, shows NG tube in the stomach past the level of diaphragm Assessment and Plan: Active: Severe sepsis secondary to intra-abdominal source Metastatic bladder cancer status post colostomy and urostomy, with colovesical fistula Portal venous gas with possible stomach ischemia and enteritis Pulmonary artery gas noted on CT Hypercalcemia Lactic acidosis Metabolic acidosis -Continue normal saline at 130 cc an hour -Continue Zofran 4 IV every 6 hours as needed -Maintain IV Zosyn 3.375 g IV every 8 hours -Blood cultures pending -Maintain NG tube -Discussed management with general surgery, no indications for surgery due to patient being a poor candidate -Continue supportive care at the moment -Pain control with IV Dilaudid as needed -Labs pending DVT ppx: SCDs Code status: No code Anticipated discharge place: Pending clinical course Anticipated discharge time: Pending clinical course Objective - Vital Signs Vital signs: Vital Signs Temp 97.8 F 06/02/23 08:30 Pulse 101 H 06/02/23 08:30 Resp 20 06/02/23 08:30 BP 108/75 06/02/23 08:30 Pulse Ox 100 06/02/23 08:30 FiO2 Intake & Output 06/01/23 06/02/23 06/02/23 18:59 06:59 18:59 Output Total 2350 120 Balance -2350 -120 Weight 47.174 kg Output: Gastric Drainage 1400 Urine 750 120 Emesis 200 - Labs CBC & Chem 7: 06/01/23 02:19 06/01/23 02:19 Labs: Abnormal Lab Results - Last 24 Hours (Table) 06/01/23 06/01/23 06/01/23 Range/Units 11:17 14:15 18:01 Plasma Lactic Acid José 3.4 H* 2.8 H* 2.8 H* (0.7-2.0) mmol/L 06/01/23 06/02/23 06/02/23 Range/Units 21:43 00:28 03:39 Plasma Lactic Acid José 2.5 H* 2.5 H* 3.3 H* (0.7-2.0) mmol/L 06/02/23 Range/Units 06:57 Plasma Lactic Acid José 2.3 H* (0.7-2.0) mmol/L
[2023-06-02 12:29] LABS: ALT 22 U/L (4-49); AST 33 U/L (17-59); African American GFR (CKD) >90 (>60 ml/min/1.73 sqM); Albumin 2.8 g/dL (3.5-5.0); Alkaline Phosphatase 467 U/L (38-126); Anion Gap 11 mmol/L; Blood Urea Nitrogen 46 mg/dL (9-20); Carbon Dioxide 20 mmol/L (22-30); Chloride 112 mmol/L (98-107); Glucose 89 mg/dL (74-99); Non-African American GFR(CKD) 90 (>60 ml/min/1.73 sqM); Potassium 4.4 mmol/L (3.5-5.1); Sodium 143 mmol/L (137-145); Total Bilirubin 0.6 mg/dL (0.2-1.3)
[2023-06-02 12:34] LABS: Anisocytosis Slight; HCT 32.4 % (39.0-53.0); HGB 10.3 gm/dL (13.0-17.5); Hypochromasia Moderate; MCH 30.5 pg (25.0-35.0); MCHC 31.7 g/dL (31.0-37.0); MCV 96.3 fL (80.0-100.0); Mean Platelet Volume 8.5; Platelet Count 599 k/uL (150-450); RBC 3.36 m/uL (4.30-5.90); RDW 16.4 % (11.5-15.5); WBC 18.9 k/uL (3.8-10.6)
[2023-06-02 13:10] LABS: Band Neutrophils % 16 %; Nucleated Red Blood Cells 0 /100 WBC (0-0)
[2023-06-02 13:12] LABS: Lymphocytes # (M) 0.95 k/uL (1.0-4.8); Monocytes # (M) 0.76 k/uL (0-1.0); Neutrophils % (M) 76 %; Total Cells Counted 200
[2023-06-02 13:13] LABS: Toxic Granulation Present; Toxic Vacuolation Present
[2023-06-03] MEDS: PIPERACILLIN-TAZOBACTAM 3.375 GM in SODIUM CHLORIDE 0.9% 100 ML IVPB SCH ×3 (03:41→20:24)
[2023-06-03] MEDS: HYDROmorphone 0.5 MG/0.5 ML SYRINGE IVP PRN ×3 (04:01→16:24)
[2023-06-03] MEDS: ENOXAPARIN 40 MG/0.4 ML SYRINGE SQ SCH (08:47)
[2023-06-03] MEDS: PANTOPRAZOLE 40 MG/10 ML VIAL IVP SCH (08:47)
--- NOTE | 2023-06-03 09:40 | XR ---
EXAMINATION TYPE: XR chest 1V portable DATE OF EXAM: 06/03/2023 HISTORY: Shortness of breath. COMPARISON: None. TECHNIQUE: Single view of the chest is submitted. FINDINGS: Demonstrated are scattered senescent parenchymal change. Patchy infiltrate right lower lobe. The remainder of the lungs are clear. Hyperinflation noted. The heart is stable. Hilar and mediastinal structures are within normal limits. Degenerative changes are seen of the dorsal spine. IMPRESSION: 1. Patchy infiltrate right lower lobe.
--- NOTE | 2023-06-03 09:42 | XR ---
EXAMINATION TYPE: XR KUB portable DATE OF EXAM: 06/03/2023 COMPARISON: NONE HISTORY: Pain TECHNIQUE: Single supine KUB image of the abdomen is obtained FINDINGS: Small bowel demonstrates no evidence for dilatation or air fluid levels. NG tube has been. Gas and fecal material is seen in non-distended colon. No convincing evidence for pneumoperitoneum. No unusual calcifications. The lung bases are clear. The osseous structures are intact. IMPRESSION: 1. Overall nonobstructive bowel gas pattern.
[2023-06-03 10:25] LABS: Anisocytosis Slight; Basophils % (A) 0 %; Eosinophils # (A) 0.1 k/uL (0-0.7); Eosinophils % (A) 0 %; HCT 32.1 % (39.0-53.0); HGB 10.1 gm/dL (13.0-17.5); Hypochromasia Slight; Lymphocytes # (A) 0.7 k/uL (1.0-4.8); Lymphocytes % (A) 4 %; MCH 29.7 pg (25.0-35.0); MCHC 31.4 g/dL (31.0-37.0); MCV 94.7 fL (80.0-100.0); Mean Platelet Volume 7.8; Monocytes # (A) 0.7 k/uL (0-1.0); Monocytes % (A) 4 %; Neutrophils # (A) 16.4 k/uL (1.3-7.7); Neutrophils % (A) 91 %; Platelet Count 433 k/uL (150-450); RBC 3.39 m/uL (4.30-5.90); RDW 16.3 % (11.5-15.5)
[2023-06-03 10:56] LABS: ALT 20 U/L (4-49); AST 30 U/L (17-59); African American GFR (CKD) >90 (>60 ml/min/1.73 sqM); Albumin 2.8 g/dL (3.5-5.0); Alkaline Phosphatase 431 U/L (38-126); Anion Gap 10 mmol/L; Blood Urea Nitrogen 36 mg/dL (9-20); Calcium 11.9 mg/dL (8.4-10.2); Carbon Dioxide 14 mmol/L (22-30); Chloride 126 mmol/L (98-107); Glucose 72 mg/dL (74-99); Non-African American GFR(CKD) >90 (>60 ml/min/1.73 sqM); Sodium 150 mmol/L (137-145); Total Bilirubin 0.5 mg/dL (0.2-1.3)
[2023-06-03 11:32] VITALS: BMI 17.8
--- NOTE | 2023-06-03 11:58 | P.PN ---
Subjective Progress Note Date: 06/03/23 73-year-old male with metastatic bladder cancer status post tumor resection and subsequent colostomy and urostomy coming in with intractable N/V and abdominal pain. Patient was supposed to start chemotherapy in 2 days and getting a PEG tube due to poor PO intake however due to repeated vomiting he was brought into the hospital for evaluation. On initial presentation, patient was tachycardic and hypotensive. Laboratory analysis showed a WBC of 18.1, platelet 729, creatinine 0.79, lactate 7.5, bicarb 18, ALP 785. CT abdomen pelvis showed extensive portal venous gas throughout the intrahepatic portal venous system and involving the left main and right main pulmonary artery, suggestion of nondepend ent gas along the wall of stomach diffusely, gas in the perigastric vasculature, concerning for ischemia of the stomach, diffuse small bowel mucosal thickening with fluid and gas distention, concerning for enteritis, bladder showed abnormal appearance with thickening and nondependent fluid and gas, persistent fistulous communication with the distal rectosigmoid colon at the dome of the bladder. P atient was started on IV hydration, NG tube, Zosyn (06/01) and admitted for severe sepsis. Family does not want to escalate care. There was no desire from patient or family to be transferred to a higher level of care. General surgery on board. 06/03 Patient was seen and examined. He reports no complaints. Pulled out NG tube this morning. Maintained on Zosyn and NS at 130 cc/hr. Blood Cx negative so far. On 5L non rebreather. CXR done this morning shows RLL infiltrate. KUB shows non obstructive bowel gas pattern. CBC WBC 18, Hg 10.1 Hct 32.1. CMP Na 150, Cl 126, bicarb 14, BUN 36, Cr 0.62, glu 72, Ca 11.9, alk phos 431, alb 2.8. Case discussed extensively with the son and daughter. He is not a candidate for surgery. He has a poor quality of life. Weight loss of 60 pounds over the past 10 months. They are interested in hospice services. General: Non toxic, no distress, appears at stated age, cachectic Derm: Warm, dry Head: Atraumatic, normocephalic, symmetric Eyes: EOMI, no lid lag, anicteric sclera Mouth: No lip lesion, mucus membranes moist Cardiovascular: S1S2 tachycardic, no murmur Lungs: Decreased breath sounds bilateral, no rhonchi, no rales, no accessory muscle use Abdominal: Soft, nontender to palpation, no guarding, no appreciable organomegaly, colostomy bag Ext: No gross muscle atrophy, no edema, no contractures Neuro: no focal neuro deficits Psych: Alert, oriented, appropriate affect Based on my assessment of this patient, this patient meets a high complexity l evel of care. Patient has an acute diagnosis of severe sepsis due to stomach ischemia and enteritis that poses a threat to life or bodily function. Severe sepsis secondary to intra-abdominal source: Continue Zosyn 3.375g IV TID (D3). D5W at 100 cc/hr. Patient self discontinued NG tube. Per surgery, patient poor candidate for surgical intervention. Telemetry monitoring. Follow BCx. Surgery on board. Acute hypoxic respiratory failure likely due to aspiration PNA: IV antibiotics as above. Hypernatremia: Switch NS to D5W at 100 cc/hr. Prerenal azotemia: IV hydration as above. HyperCl metabolic acidosis: IV hydration as above. Metastatic bladder cancer status post colostomy and urostomy, with colovesical fistula Portal venous gas with possible stomach ischemia and enteritis Pulmonary artery gas noted on CT Hypercalcemia Normocytic anemia with Thrombocytosis Lactic acidosis: IV hydration as above. Trend until normalized. CODE STATUS: NO CODE DVT Prophylaxis: Lovenox SQ GI Prophylaxis: Protonix IV Designated medical POA if patient is not able to make medical decisions for themselves: DaughterVandana, I have reviewed the following web development consultant notes: I have reviewed the results of the following tests: CBC, CMP I have ordered the following tests: CXR, KUB I have discussed the care of this patient with the following independent historian: Son, Daughter, RN, Case management. I have independently interpreted the following test below: CXR, KUB I have discussed the management of this patient with the following physician: Objective - Vital Signs Vital signs: Vital Signs Temp 97.6 F 06/03/23 03:44 Pulse 97 06/03/23 03:44 Resp 20 06/03/23 03:44 BP 117/69 06/03/23 03:44 Pulse Ox 100 06/03/23 03:44 FiO2 Intake & Output 06/02/23 06/03/23 06/03/23 18:59 06:59 18:59 Intake Total 1200 Output Total 1820 750 Balance -620 -750 Weight 47.17 kg Intake: Intake, IV Titration 1200 Amount Piperacillin-Tazobactam 3 100 .375 gm In Sodium Chloride 0.9% 100 ml @ 25 mls/hr IVPB Q8H [facility] Rx#: [id number] Sodium Chloride 0.9% 1, 1100 000 ml @ 130 mls/hr IV . Q7H42M [facility] Rx#:[id number] Output: Gastric Drainage 1100 Urine 720 750 - Labs CBC & Chem 7: 06/03/23 09:03 06/03/23 09:03 Labs: Abnormal Lab Results - Last 24 Hours (Table) 06/02/23 06/02/23 06/02/23 Range/Units 06:57 06:57 06:57 WBC 18.9 H (3.8-10.6) k/uL RBC 3.36 L (4.30-5.90) m/uL Hgb 10.3 L (13.0-17.5) gm/dL Hct 32.4 L (39.0-53.0) % RDW 16.4 H (11.5-15.5) % Plt Count 599 H (150-450) k/uL Neutrophils # (Manual) 17.30 H (1.3-7.7) k/uL Lymphocytes # (Manual) 0.95 L (1.0-4.8) k/uL Chloride 112 H (98-107) mmol/L Carbon Dioxide 20 L (22-30) mmol/L BUN 46 H (9-20) mg/dL Plasma Lactic Acid José 2.3 H* (0.7-2.0) mmol/L Calcium 11.0 H (8.4-10.2) mg/dL Alkaline Phosphatase 467 H (38-126) U/L Total Protein 6.0 L (6.3-8.2) g/dL Albumin 2.8 L (3.5-5.0) g/dL Microbiology - Last 24 Hours (Table) 06/01/23 02:05 Blood Culture - Preliminary Blood 06/01/23 02:20 Blood Culture - Preliminary Blood
[2023-06-03] MEDS: DEXTROSE 5% IN WATER 1,000 ML IV SCH ×2 (13:01→20:25)
--- NOTE | 2023-06-03 13:05 | P.PN ---
Subjective Progress Note Date: 06/03/23 CHIEF COMPLAINT: abdominal pain HISTORY OF PRESENT ILLNESS: Patient admitted to the hospital abdominal pain with possible gastric ischemia and portal venous gas. Patient did have NG tube in place with 1100 output through the night. He purposely pulled out his NG tube this morning. At this time he reports his abdominal pain has been a 6 out of 10 which is better than yesterday. He currently has had no nausea or vomiting. He does have stool present in his ostomy bag. KUB x-ray reports overall non obstructive bowel gas pattern. Afebrile. Heart rate 109 on 5 L nasal cannula. WBC 18.0 PHYSICAL EXAM: VITAL SIGNS: Reviewed. GENERAL: Well-developed in no acute distress. ABDOMEN: Soft. Nondistended. Mild tenderness palpation across the lower abdomen. Nontender epigastric area. Ostomy on the left with stool present. Urostomy on the right with urine present NEUROLOGIC: Awake and alert ASSESSMENT: 1. Abdominal pain 2. Possible gastric ischemia and portal venous gas 3. 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 -Patient removed NG tube. Will monitor without NG tube -Patient and family are requesting Hospice. Medicine service has consulted hospice Physician Disc Recordist note has been reviewed by physician. Signing provider agrees with the documented findings, assessment, and plan of care. Objective - Vital Signs Vital signs: Vital Signs Temp 97.2 F L 06/03/23 08:45 Pulse 109 H 06/03/23 08:45 Resp 22 06/03/23 08:45 BP 128/83 06/03/23 08:45 Pulse Ox 100 06/03/23 09:06 FiO2 Intake & Output 06/02/23 06/03/23 06/03/23 18:59 06:59 18:59 Intake Total 1200 Output Total 1820 750 500 Balance -620 -750 -500 Weight 47.17 kg 47.17 kg Intake: Intake, IV Titration 1200 Amount Piperacillin-Tazobactam 3 100 .375 gm In Sodium Chloride 0.9% 100 ml @ 25 mls/hr IVPB Q8H [facility] Rx#: [id number] Sodium Chloride 0.9% 1, 1100 000 ml @ 130 mls/hr IV . Q7H42M [facility] Rx#:[id number] Output: Gastric Drainage 1100 Urine 720 750 500 - Labs CBC & Chem 7: 06/03/23 09:03 06/03/23 09:03 Labs: Abnormal Lab Results - Last 24 Hours (Table) 06/02/23 06/02/23 06/03/23 Range/Units 06:57 06:57 09:03 WBC 18.9 H 18.0 H (3.8-10.6) k/uL RBC 3.36 L 3.39 L (4.30-5.90) m/uL Hgb 10.3 L 10.1 L (13.0-17.5) gm/dL Hct 32.4 L 32.1 L (39.0-53.0) % RDW 16.4 H 16.3 H (11.5-15.5) % Plt Count 599 H (150-450) k/uL Neutrophils # 16.4 H (1.3-7.7) k/uL Neutrophils # (Manual) 17.30 H (1.3-7.7) k/uL Lymphocytes # 0.7 L (1.0-4.8) k/uL Lymphocytes # (Manual) 0.95 L (1.0-4.8) k/uL Sodium (137-145) mmol/L Chloride 112 H (98-107) mmol/L Carbon Dioxide 20 L (22-30) mmol/L BUN 46 H (9-20) mg/dL Creatinine (0.66-1.25) mg/dL Glucose (74-99) mg/dL Calcium 11.0 H (8.4-10.2) mg/dL Alkaline Phosphatase 467 H (38-126) U/L Total Protein 6.0 L (6.3-8.2) g/dL Albumin 2.8 L (3.5-5.0) g/dL 06/03/23 Range/Units 09:03 WBC (3.8-10.6) k/uL RBC (4.30-5.90) m/uL Hgb (13.0-17.5) gm/dL Hct (39.0-53.0) % RDW (11.5-15.5) % Plt Count (150-450) k/uL Neutrophils # (1.3-7.7) k/uL Neutrophils # (Manual) (1.3-7.7) k/uL Lymphocytes # (1.0-4.8) k/uL Lymphocytes # (Manual) (1.0-4.8) k/uL Sodium 150 H (137-145) mmol/L Chloride 126 H (98-107) mmol/L Carbon Dioxide 14 L (22-30) mmol/L BUN 36 H (9-20) mg/dL Creatinine 0.62 L (0.66-1.25) mg/dL Glucose 72 L (74-99) mg/dL Calcium 11.9 H (8.4-10.2) mg/dL Alkaline Phosphatase 431 H (38-126) U/L Total Protein 6.0 L (6.3-8.2) g/dL Albumin 2.8 L (3.5-5.0) g/dL Microbiology - Last 24 Hours (Table) 06/01/23 02:05 Blood Culture - Preliminary Blood 06/01/23 02:20 Blood Culture - Preliminary Blood
--- NOTE | 2023-06-03 14:39 | CDI ---
Documentation Clarification Form Date: 06/03/2023 02:22:43 PM From: Heather Edmondson RN CCDS Phone: [phone] Admit Date: 06/01/2023 05:07:00 AM Patient Name: Julius Reynoso Visit Number: [id number] Discharge Date: ATTENTION: The Clinical Documentation Specialists (CDI) and [facility] Coding Staff appreciate your assistance in clarifying documentation. Please respond to the clarification below the line at the bottom and electronically sign. The CDI & [facility] Coding staff will review the response and follow-up if needed. Please note: Queries are made part of the Legal Health Record. If you have any questions, please contact the author of this message via ITS. Dr. Thu Hair The Registered Dietitian assessment on 06/03 indicates this patient meets criteria for severe malnutrition. Based on this information and the findings below, is there an additional diagnosis that is clinically appropriate for this patient? History/Risk Factors: 73-year-old male presented to the ED with abdominal pain, nausea and vomiting. Medical History: Metastatic bladder cancer s/p tumor resection and subsequent colostomy and urostomy. Weight loss of 60 pounds over the past 10 months. 06/01 H&P Clinical Indicators: RD Consult Assessment, 06/03: Current BMI: 17.8kg Wgt 47.17kg Hgt 5ft 4inch Estimated Nutritional Needs: Kcals: energy formula for 30-35Kcals/kg Estimated Nutritional needs Kcals: 1410 1645 Kcal Estimated Protein needs : Protein range 1.25-1.5gm/kg; Estimated protein needs 59-71 grams /day. Nutritional diagnosis Severe chronic malnutrition. Related to: Diminished appetite, advanced age muscle wasting to orbital / clavicular region, 21% weight loss x 9 months initiated. Nutritional Goal: Increased PO intake from 50% -75% meeting 75% of estimated nutritional needs. Treatment: Diet and education. Monitoring diet at this time NPO. Supplements: Recommended Oral supplement TID when diet is advanced Is there an additional diagnosis that is clinically appropriate for this patient? [x ] Severe Protein-Calorie Malnutrition [ ] Other condition, please specify [ ] Unable to Determine Reference: Using the ASPEN Guidelines, Undernutrition (Malnutrition) is characterized by at least two of the following six findings. The severity can be determined based on the criteria listed below. Malnutrition Characteristics for Moderate and Severe Malnutrition Type of Malnutrition Acute Illness or Injury Chronic Illness Degree of Malnutrition Non-severe (moderate) Malnutrition Severe Malnutrition Non-severe (moderate) Malnutrition Severe Malnutrition Energy Intake <75% for >7 days = 50% for = 5 days <75% for = 1 month =75% for = 1 month Weight Loss 1-2% in one week, 5% in 1 month, 7.5% in 3 months 2% in one week, >5% in 1 month, >7.5% in 3 months 5% in one month, 7.5% in 3 months, 10% in 6 months, 20% in 1 year >5% in one month, >7.5% in 3 months, >10% in 6 months, >20% in 1 year Body Fat Wasting Mild Moderate Mild Severe Muscle Wasting Mild Moderate Mild Severe Presence of Edema Mild Moderate to Severe Mild Severe Franchise Development Manager Strength Not applicable Measurably Reduced Not applicable Measurably Reduced Source: Familia RiveroV, Hugo P, Frederick G, et al. Consensus statement: Academy of Nutrition and Dietetics and [place] Society for Parenteral and Enteral Nutrition: characteristics recommended for the identification and documentation of adult malnutrition (undernutrition).JAMEE J Parenter Enteral Nutr. 2012;36(3):275-283. (Template Last Revised: November 2022) MTDD
[2023-06-03] MEDS: SODIUM CHLORIDE 0.9% 1,000 ML IV SCH (16:05)
[2023-06-03] MEDS: NICOTINE 21MG/24HR PATCH TRANSDERM SCH (16:24)
[2023-06-04] MEDS: PIPERACILLIN-TAZOBACTAM 3.375 GM in SODIUM CHLORIDE 0.9% 100 ML IVPB SCH ×3 (05:07→19:45)
[2023-06-04 05:48] LABS: Glucose,Whole Blood 119 mg/dL (70-110)
[2023-06-04] MEDS: DEXTROSE 5% IN WATER 1,000 ML IV SCH (05:50)
[2023-06-04 09:29] LABS: Anisocytosis Slight; HCT 27.4 % (39.0-53.0); Hypochromasia Moderate; MCH 29.8 pg (25.0-35.0); MCHC 31.3 g/dL (31.0-37.0); MCV 95.2 fL (80.0-100.0); Mean Platelet Volume 7.5; Platelet Count 428 k/uL (150-450); RBC 2.88 m/uL (4.30-5.90); RDW 16.3 % (11.5-15.5); WBC 11.4 k/uL (3.8-10.6)
[2023-06-04] MEDS: NICOTINE 21MG/24HR PATCH TRANSDERM SCH (09:41)
[2023-06-04] MEDS: ENOXAPARIN 40 MG/0.4 ML SYRINGE SQ SCH (09:41)
[2023-06-04] MEDS: PANTOPRAZOLE 40 MG/10 ML VIAL IVP SCH (09:41)
[2023-06-04 09:52] LABS: HGB 8.6 gm/dL (13.0-17.5)
[2023-06-04 10:01] LABS: African American GFR (CKD) >90 (>60 ml/min/1.73 sqM); Anion Gap 4 mmol/L; Blood Urea Nitrogen 19 mg/dL (9-20); Calcium 10.9 mg/dL (8.4-10.2); Carbon Dioxide 19 mmol/L (22-30); Chloride 112 mmol/L (98-107); Glucose 102 mg/dL (74-99); Non-African American GFR(CKD) >90 (>60 ml/min/1.73 sqM); Potassium 3.2 mmol/L (3.5-5.1); Sodium 135 mmol/L (137-145)
--- NOTE | 2023-06-04 11:29 | P.PN ---
Subjective Progress Note Date: 06/04/23 73-year-old male with metastatic bladder cancer status post tumor resection and subsequent colostomy and urostomy coming in with intractable N/V and abdominal pain. Patient was supposed to start chemotherapy in 2 days and getting a PEG tube due to poor PO intake however due to repeated vomiting he was brought into the hospital for evaluation. On initial presentation, patient was tachycardic and hypotensive. Laboratory analysis showed a WBC of 18.1, platelet 729, creatinine 0.79, lactate 7.5, bicarb 18, ALP 785. CT abdomen pelvis showed extensive portal venous gas throughout the intrahepatic portal venous system and involving the left main and right main pulmonary artery, suggestion of nondepend ent gas along the wall of stomach diffusely, gas in the perigastric vasculature, concerning for ischemia of the stomach, diffuse small bowel mucosal thickening with fluid and gas distention, concerning for enteritis, bladder showed abnormal appearance with thickening and nondependent fluid and gas, persistent fistulous communication with the distal rectosigmoid colon at the dome of the bladder. P atient was started on IV hydration, NG tube, Zosyn (06/01) and admitted for severe sepsis. Family does not want to escalate care. There was no desire from patient or family to be transferred to a higher level of care. General surgery on board. 06/03 Patient was seen and examined. He reports no complaints. Pulled out NG tube this morning. Maintained on Zosyn 3.375g IV TID and NS at 130 cc/hr. Blood Cx negative so far. On 5L HFNC. CXR done this morning shows RLL infiltrate. KUB shows non obstructive bowel gas pattern. CBC WBC 18, Hg 10.1 Hct 32.1. CMP Na 150, Cl 126, bicarb 14, BUN 36, Cr 0.62, glu 72, Ca 11.9, alk phos 431, alb 2.8. Case discussed extensively with the son and daughter. He is not a candidate for surgery. He has a poor quality of life. Weight loss of 60 pounds over the past 10 months. They are interested in hospice services. 06/04 Patient was seen and examined. He reports his overall pain to be 7/10. Appears comfortable right now. He remains tachycardic with HR in the low 100s. Afebrile. Currently on 5L HFNC. Maintained on Zosyn 3.375g IV TID and D5W at 100 cc/hr. CBC WBC 11.4 Hg 8.6 Hct 27.4. BMP Na 135, K 3.2, Cl 112, bicarb 19, Cr 0.46, glu 102, Ca 10.9. Discussed with son at bedside, that are agreeable to Hospice at home, will need a day or so due to issues with septic tank. General: Non toxic, no distress, appears at stated age, cachectic Derm: Warm, dry Head: Atraumatic, normocephalic, symmetric Eyes: EOMI, no lid lag, anicteric sclera Mouth: No lip lesion, mucus membranes moist Cardiovascular: S1S2 tachycardic, no murmur Lungs: Decreased breath sounds bilateral, no rhonchi, no rales, no accessory muscle use Abdominal: Soft, nontender to palpation, no guarding, no appreciable organomegaly, colostomy bag Ext: No gross muscle atrophy, no edema, no contractures Neuro: no focal neuro deficits Psych: Alert, oriented, appropriate affect Based on my assessment of this patient, this patient meets a moderate complexity level of care. Patient has an acute diagnosis of severe sepsis due to stomach ischemia and enteritis that poses a threat to life or bodily function. Severe sepsis secondary to stomach ischemia vs enteritis: Continue Zosyn 3.375g IV TID (D4). D51/2NS at 75 cc/hr. Patient self discontinued NG tube on 06/03. Per surgery, patient poor candidate for surgical intervention. Telemetry monitoring. Follow BCx. Surgery on board. Hospice consulted. Acute hypoxic respiratory failure likely due to aspiration PNA: IV antibiotics as above. Attempt NDD1 diet. Discussed with family, PEG will not prevent aspiration. Hypoglycemia: Asymptomatic. Due to NPO status and poor appetite. Accuchecks Q6H. IV hydration as above. HyperCl metabolic acidosis: IV hydration as above. Metastatic bladder cancer status post colostomy and urostomy, with colovesical fistula Portal venous gas with possible stomach ischemia and enteritis Pulmonary artery gas noted on CT Hypercalcemia: Likely due to malignancy. Normocytic anemia Lactic acidosis: IV hydration as above. Trend until normalized. Resolved: HyperNa, Prerenal azotemia CODE STATUS: NO CODE DVT Prophylaxis: Lovenox SQ GI Prophylaxis: Protonix IV Designated medical POA if patient is not able to make medical decisions for themselves: Daughter, Vandana, I have reviewed the following business operations consultant notes: I have reviewed the results of the following tests: CBC, BMP I have ordered the following tests: I have discussed the care of this patient with the following independent histori an: Son, RN, Case management. I have independently interpreted the following test below: I have discussed the management of this patient with the following physician: Objective - Vital Signs Vital signs: Vital Signs Temp 98.2 F 06/04/23 04:00 Pulse 95 06/04/23 04:00 Resp 19 06/04/23 04:00 BP 127/75 06/04/23 04:00 Pulse Ox 96 06/04/23 04:00 FiO2 Intake & Output 06/03/23 06/04/23 06/04/23 18:59 06:59 18:59 Intake Total 100 Output Total 500 1000 Balance -500 -900 Weight 47.17 kg Intake: Intake, IV Titration 100 Amount Piperacillin-Tazobactam 3 100 .375 gm In Sodium Chloride 0.9% 100 ml @ 25 mls/hr IVPB Q8H [facility] Rx#: [id number] Output: Urine 500 1000 Other: # Voids 1 - Labs CBC & Chem 7: 06/04/23 08:41 06/04/23 08:41 Labs: Abnormal Lab Results - Last 24 Hours (Table) 06/03/23 06/03/23 06/04/23 Range/Units 09:03 09:03 05:47 WBC 18.0 H (3.8-10.6) k/uL RBC 3.39 L (4.30-5.90) m/uL Hgb 10.1 L (13.0-17.5) gm/dL Hct 32.1 L (39.0-53.0) % RDW 16.3 H (11.5-15.5) % Neutrophils # 16.4 H (1.3-7.7) k/uL Lymphocytes # 0.7 L (1.0-4.8) k/uL Sodium 150 H (137-145) mmol/L Chloride 126 H (98-107) mmol/L Carbon Dioxide 14 L (22-30) mmol/L BUN 36 H (9-20) mg/dL Creatinine 0.62 L (0.66-1.25) mg/dL Glucose 72 L (74-99) mg/dL POC Glucose (mg/dL) 119 H (70-110) mg/dL Calcium 11.9 H (8.4-10.2) mg/dL Alkaline Phosphatase 431 H (38-126) U/L Total Protein 6.0 L (6.3-8.2) g/dL Albumin 2.8 L (3.5-5.0) g/dL Microbiology - Last 24 Hours (Table) 06/01/23 02:05 Blood Culture - Preliminary Blood 06/01/23 02:20 Blood Culture - Preliminary Blood
[2023-06-04 12:00] LABS: Glucose,Whole Blood 121 mg/dL (70-110)
[2023-06-04] MEDS: DEXTROSE 5%-0.45% NACL 1,000 ML IV SCH (12:00)
--- NOTE | 2023-06-04 14:55 | CDI ---
Documentation Clarification Form Date: 06/04/2023 02:39:51 PM From: Heather Edmondson RN CCDS Phone: [phone] Admit Date: 06/01/2023 05:07:00 AM Patient Name: Julius Reynoso Visit Number: [id number] Discharge Date: ATTENTION: The Clinical Documentation Specialists (CDI) and [facility] Coding Staff appreciate your assistance in clarifying documentation. Please respond to the clarification below the line at the bottom and electronically sign. The CDI & [facility] Coding staff will review the response and follow-up if needed. Please note: Queries are made part of the Legal Health Record. If you have any questions, please contact the author of this message via ITS. Dr. Thu Hair The patient has Sepsis, documented on 06/01, H&P. Based on this information and the findings below, is there an additional diagnosis that is clinically appropriate for this patient? History/Risk Factors: 73-yearold male presented to the ED with abdominal pain nausea and vomiting. Medical History: Metastatic bladder cancer s/p tumor resection and subsequent colostomy and urostomy. 06/01 H&P. Clinical Indicators: WBC, 06/01: 18.1 Lactic acid, 06/01: 7.5 Blood cultures: 06/04 no growth after 72 hours. Vitals signs, 06/01: B/P 75/51; HR 81; Temp 97.9F Oral; RR 24; SpO2 94% 2L nasal cannula 06/02, Surgical consult: 73-year-old male with advanced malignancy. Presents with possible gastric ischemia and portal venous gas.Decision by family and patient for supportive care only.Seems to be doing better.Continue antibiotics. Treatment: 06/01 0.9NS 130cc/hr IV; Antibiotics: 06/01 Ceftriaxone 2gm IVPB x 1; 06/01 Zosyn 3.375GM IVPB; 06/01 Zosyn IVPB 3.375gm IVPB Q8H; IV Bolus: 06/01 0.9NS 1L IV Bolus; 06/01 0.9NS 500ml IV Bolus; 06/01 0.9NS 1L IV Bolus Is there an additional diagnosis that is clinically appropriate for this patient? [ ] Septic Shock [ x ] Other, please specify _sepsis [ ] Unable to determine SIRS Criteria: 2 or more of the following may indicate SIRS Temperature < 96.8F (36C) or > 101.0F (38.3C) Heart Rate > 90 bpm Respiratory Rate > 20 breaths/min or PaCO2 < 32 mmHg White Blood Cell Count > 12,000 or < 4,000 cells/mm3 or > 10% bands (Template Last Reviewed: May 2022) MTDD
[2023-06-04 18:00] LABS: Glucose,Whole Blood 110 mg/dL (70-110)
[2023-06-05 00:12] LABS: Glucose,Whole Blood 108 mg/dL (70-110)
[2023-06-05] MEDS: PIPERACILLIN-TAZOBACTAM 3.375 GM in SODIUM CHLORIDE 0.9% 100 ML IVPB SCH ×3 (03:30→19:55)
[2023-06-05] MEDS: DEXTROSE 5%-0.45% NACL 1,000 ML IV SCH ×2 (03:31→15:14)
[2023-06-05 05:46] LABS: Glucose,Whole Blood 108 mg/dL (70-110)
[2023-06-05] MEDS: NICOTINE 21MG/24HR PATCH TRANSDERM SCH (08:38)
[2023-06-05] MEDS: PANTOPRAZOLE 40 MG/10 ML VIAL IVP SCH (08:38)
[2023-06-05] MEDS: ENOXAPARIN 40 MG/0.4 ML SYRINGE SQ SCH (08:38)
[2023-06-05 12:00] LABS: Glucose,Whole Blood 118 mg/dL (70-110)
--- NOTE | 2023-06-05 13:23 | P.PN ---
Subjective Progress Note Date: 06/05/23 73-year-old male with metastatic bladder cancer status post tumor resection and subsequent colostomy and urostomy coming in with intractable N/V and abdominal pain. Patient was supposed to start chemotherapy in 2 days and getting a PEG tube due to poor PO intake however due to repeated vomiting he was brought into the hospital for evaluation. On initial presentation, patient was tachycardic and hypotensive. Laboratory analysis showed a WBC of 18.1, platelet 729, creatinine 0.79, lactate 7.5, bicarb 18, ALP 785. CT abdomen pelvis showed extensive portal venous gas throughout the intrahepatic portal venous system and involving the left main and right main pulmonary artery, suggestion of nondepend ent gas along the wall of stomach diffusely, gas in the perigastric vasculature, concerning for ischemia of the stomach, diffuse small bowel mucosal thickening with fluid and gas distention, concerning for enteritis, bladder showed abnormal appearance with thickening and nondependent fluid and gas, persistent fistulous communication with the distal rectosigmoid colon at the dome of the bladder. P atient was started on IV hydration, NG tube, Zosyn (06/01) and admitted for severe sepsis. Family does not want to escalate care. There was no desire from patient or family to be transferred to a higher level of care. General surgery on board. 06/03 Patient was seen and examined. He reports no complaints. Pulled out NG tube this morning. Maintained on Zosyn 3.375g IV TID and NS at 130 cc/hr. Blood Cx negative so far. On 5L HFNC. CXR done this morning shows RLL infiltrate. KUB shows non obstructive bowel gas pattern. CBC WBC 18, Hg 10.1 Hct 32.1. CMP Na 150, Cl 126, bicarb 14, BUN 36, Cr 0.62, glu 72, Ca 11.9, alk phos 431, alb 2.8. Case discussed extensively with the son and daughter. He is not a candidate for surgery. He has a poor quality of life. Weight loss of 60 pounds over the past 10 months. They are interested in hospice services. 06/04 Patient was seen and examined. He reports his overall pain to be 7/10. Appears comfortable right now. He remains tachycardic with HR in the low 100s. Afebrile. Currently on 5L HFNC. Maintained on Zosyn 3.375g IV TID and D5W at 100 cc/hr. CBC WBC 11.4 Hg 8.6 Hct 27.4. BMP Na 135, K 3.2, Cl 112, bicarb 19, Cr 0.46, glu 102, Ca 10.9. Discussed with son at bedside, that are agreeable to Hospice at home, will need a day or so due to issues with septic tank. 06/05 Patient was seen and examined. He reports 8/10 pain in his bilateral hips and bilateral LE. I will start the patient on Fentanyl 12 mcg SQ Q72H. Tolerating diet well. Plans for home with hospice tomorrow. General: Non toxic, no distress, appears at stated age, cachectic Derm: Warm, dry Head: Atraumatic, normocephalic, symmetric Eyes: EOMI, no lid lag, anicteric sclera Mouth: No lip lesion, mucus membranes moist Cardiovascular: S1S2 tachycardic, no murmur Lungs: Decreased breath sounds bilateral, no rhonchi, no rales, no accessory muscle use Abdominal: Soft, nontender to palpation, no guarding, no appreciable organomegaly, colostomy bag Ext: No gross muscle atrophy, no edema, no contractures Neuro: no focal neuro deficits Psych: Alert, oriented, appropriate affect Based on my assessment of this patient, this patient meets a moderate complexity level of care. Patient has an acute diagnosis of severe sepsis due to stomach ischemia and enteritis that poses a threat to life or bodily function. Severe sepsis secondary to stomach ischemia vs enteritis: Continue Zosyn 3.375g IV TID (D4). D51/2NS at 75 cc/hr. Patient self discontinued NG tube on 06/03. Per surgery, patient poor candidate for surgical intervention. Telemetry monitoring. Follow [facility]. Surgery on board. Hospice consulted. Acute hypoxic respiratory failure likely due to aspiration PNA: IV antibiotics as above. Attempt NDD1 diet. Discussed with family, PEG will not prevent aspiration. Hypoglycemia: Asymptomatic. Due to NPO status and poor appetite. Accuchecks Q6H. IV hydration as above. HyperCl metabolic acidosis: IV hydration as above. Metastatic bladder cancer status post colostomy and urostomy, with colovesical fistula Portal venous gas with possible stomach ischemia and enteritis Pulmonary artery gas noted on CT Hypercalcemia: Likely due to malignancy. Normocytic anemia Lactic acidosis: IV hydration as above. Trend until normalized. Resolved: HyperNa, Prerenal azotemia CODE STATUS: NO CODE DVT Prophylaxis: Lovenox SQ GI Prophylaxis: Protonix IV Designated medical POA if patient is not able to make medical decisions for themselves: DaughterVandana, I have reviewed the following senior sustainability consultant notes: I have reviewed the results of the following tests: I have ordered the following tests: I have discussed the care of this patient with the following independent histo justino: RN, Case management. I have independently interpreted the following test below: I have discussed the management of this patient with the following physician: Objective - Vital Signs Vital signs: Vital Signs Temp 97.6 F 06/05/23 08:11 Pulse 88 06/05/23 11:40 Resp 18 06/05/23 11:40 BP 106/66 06/05/23 11:40 Pulse Ox 100 06/05/23 11:40 FiO2 Intake & Output 06/04/23 06/05/23 06/05/23 18:59 06:59 18:59 Intake Total 540 358 Output Total 800 600 350 Balance -800 -60 8 Weight 47.17 kg Intake: Oral 540 358 Output: Urine 800 600 350 Other: # Bowel Movements 1 - Labs CBC & Chem 7: 06/04/23 08:41 06/04/23 08:41 Labs: Abnormal Lab Results - Last 24 Hours (Table) 06/05/23 Range/Units 11:58 POC Glucose (mg/dL) 118 H (70-110) mg/dL Microbiology - Last 24 Hours (Table) 06/01/23 02:05 Blood Culture - Preliminary Blood 06/01/23 02:20 Blood Culture - Preliminary Blood
[2023-06-05 18:19] LABS: Glucose,Whole Blood 131 mg/dL (70-110)
[2023-06-06 00:07] LABS: Glucose,Whole Blood 112 mg/dL (70-110)
[2023-06-06] MEDS: DEXTROSE 5%-0.45% NACL 1,000 ML IV SCH (04:57)
[2023-06-06] MEDS: PIPERACILLIN-TAZOBACTAM 3.375 GM in SODIUM CHLORIDE 0.9% 100 ML IVPB SCH (04:58)
[2023-06-06 05:32] VITALS: RESP 18
[2023-06-06 06:03] LABS: Glucose,Whole Blood 112 mg/dL (70-110)
[2023-06-06 08:20] VITALS: TEMP 98.1
[2023-06-06] MEDS: ENOXAPARIN 40 MG/0.4 ML SYRINGE SQ SCH (08:55)
[2023-06-06] MEDS: PANTOPRAZOLE 40 MG/10 ML VIAL IVP SCH (08:55)
[2023-06-06] MEDS: NICOTINE 21MG/24HR PATCH TRANSDERM SCH (08:55)
--- NOTE | 2023-06-06 10:57 | P.DS ---
Providers Date of admission: 06/01/23 05:07 Expected date of discharge: 06/06/23 Attending physician: Shari Boss MD Primary care physician: Jose Johnson [facility] Hospital Course: 73-year-old male with metastatic bladder cancer status post tumor resection and subsequent colostomy and urostomy coming in with intractable N/V and abdominal pain. Patient was supposed to start chemotherapy in 2 days and getting a PEG tube due to poor PO intake however due to repeated vomiting he was brought into the hospital for evaluation. On initial presentation, patient was tachycardic and hypotensive. Laboratory analysis showed a WBC of 18.1, platelet 729, creatinine 0.79, lactate 7.5, bicarb 18, ALP 785. CT abdomen pelvis showed extensive portal venous gas throughout the intrahepatic portal venous system and involving the left main and right main pulmonary artery, suggestion of nondependent gas along the wall of stomach diffusely, gas in the perigastric vasculature, concerning for ischemia of the stomach, diffuse small bowel mucosal thickening with fluid and gas distention, concerning for enteritis, bladder showed abnormal appearance with thickening and nondependent fluid and gas, persistent fistulous communication with the distal rectosigmoid colon at the dome of the bladder. Patient was started on IV hydration, NG tube, Zosyn (06/01) and admitted for severe sepsis. Family does not want to escalate care. There was no desire from patient or family to be transferred to a higher level of care. General surgery on board. 06/03 Patient was seen and examined. He reports no complaints. Pulled out NG tube this morning. Maintained on Zosyn 3.375g IV TID and NS at 130 cc/hr. Blood Cx negative so far. On 5L HFNC. CXR done this morning shows RLL infiltrate. KUB shows non obstructive bowel gas pattern. CBC WBC 18, Hg 10.1 Hct 32.1. CMP Na 150, Cl 126, bicarb 14, BUN 36, Cr 0.62, glu 72, Ca 11.9, alk phos 431, alb 2.8. Case discussed extensively with the son and daughter. He is not a candidate for surgery. He has a poor quality of life. Weight loss of 60 pounds over the past 10 months. They are interested in hospice services. 06/04 Patient was seen and examined. He reports his overall pain to be 7/10. Appears comfortable right now. He remains tachycardic with HR in the low 100s. Afebrile. Currently on 5L HFNC. Maintained on Zosyn 3.375g IV TID and D5W at 100 cc/hr. CBC WBC 11.4 Hg 8.6 Hct 27.4. BMP Na 135, K 3.2, Cl 112, bicarb 19, Cr 0.46, glu 102, Ca 10.9. Discussed with son at bedside, that are agreeable to Hospice at home, will need a day or so due to issues with septic tank. 06/05 Patient was seen and examined. He reports 8/10 pain in his bilateral hips and bilateral LE. I will start the patient on Fentanyl 12 mcg SQ Q72H. Tolerating diet well. Plans for home with hospice tomorrow. 06/06 Patient was seen and examined. Determined to go home today. No complaints. Plans for home with hospice today. General: Non toxic, no distress, appears at stated age, cachectic Derm: Warm, dry Head: Atraumatic, normocephalic, symmetric Eyes: EOMI, no lid lag, anicteric sclera Mouth: No lip lesion, mucus membranes moist Cardiovascular: S1S2 tachycardic, no murmur Lungs: Decreased breath sounds bilateral, no rhonchi, no rales, no accessory muscle use Abdominal: Soft, nontender to palpation, no guarding, no appreciable organomegaly, colostomy bag Ext: No gross muscle atrophy, no edema, no contractures Neuro: no focal neuro deficits Psych: Alert, oriented, appropriate affect Discharge Diagnosis: Severe sepsis secondary to stomach ischemia vs enteritis Acute hypoxic respiratory failure likely due to aspiration PNA Hypoglycemia HyperCl metabolic acidosis Metastatic bladder cancer status post colostomy and urostomy, with colovesical fistula Portal venous gas with possible stomach ischemia and enteritis Pulmonary artery gas noted on CT Hypercalcemia Normocytic anemia Lactic acidosis Resolved: HyperNa, Prerenal azotemia This complex discharge took 35 minutes to complete. Patient Condition at Discharge: Serious Plan - Discharge Summary Discharge Rx Participant: No New Discharge Prescriptions: Continue HYDROcodone/APAP 10-325MG [[place] 10-325] 1 tab PO Q6H Discharge Medication List HYDROcodone/APAP 10-325MG [[place] 10-325] 1 tab PO Q6H 06/01/23 [History] Follow up Appointment(s)/Referral(s): Jose Ornelas DO [Primary Care Provider] - 1-2 days Discharge Disposition: HOME WITH HOSPICE
[2023-06-06 11:51] VITALS: BP 102/71; PULSE 97
[2023-06-06] MEDS: HYDROmorphone 0.5 MG/0.5 ML SYRINGE IVP PRN (12:09)
== END 2023-06-06 12:18 | disposition hospice, home (50) | DRG 871 ==
LOC: EC 02:00 → 3SCARD 05:07
PROVIDERS: ADMIT Internal Medicine; ATTEND Internal Medicine
PROC: 0D9670Z Drainage of Stomach with Drainage Device, Via Natural or Artificial Opening (ICD-10-PCS; principal; 2023-06-01)
DX: A41.9 Sepsis, unspecified organism (principal); E43 Unspecified severe protein-calorie malnutrition; J69.0 Pneumonitis due to inhalation of food and vomit; J96.01 Acute respiratory failure with hypoxia; Z68.1 Body mass index [BMI] 19.9 or less, adult; K55.9 Vascular disorder of intestine, unspecified; C79.9 Secondary malignant neoplasm of unspecified site; R64 Cachexia; E87.0 Hyperosmolality and hypernatremia; R65.20 Severe sepsis without septic shock; C67.9 Malignant neoplasm of bladder, unspecified; E83.52 Hypercalcemia; E86.0 Dehydration; R79.89 Other specified abnormal findings of blood chemistry; E11.649 Type 2 diabetes mellitus with hypoglycemia without coma; D64.9 Anemia, unspecified; D75.839 Thrombocytosis, unspecified; Z85.51 Personal history of malignant neoplasm of bladder; Z86.711 Personal history of pulmonary embolism; Z93.3 Colostomy status; Z59.6 Low income; Z66 Do not resuscitate
CPT/HCPCS: 36415; 71045; 74018; 74177; 80048; 80053; 81001; 82150; 83605; 83690; 85025; 85027; 85610; 85730; 87040; 93005; 94760; 96361; 96365; 96366; 96367; 96375; 96376; 99285